=== PATIENT | male | born 1940 | race Caucasian/White ===

== ENCOUNTER 2016-10-30 10:30 | Inpatient (IN) | payer MEDICARE, OTHER ==
[2016-10-30] MEDS ORDERED: Albuterol/Ipratropium 3.0-0.5 MG/3 ML Neb Soln NEB PRN (11:49)
[2016-10-30] MEDS: Insulin Aspart 100 Units/ML 3 ML Pen SUBCUT SCH ×2 (12:50→17:39)
[2016-10-30] MEDS: Acetaminophen/HYDROcodone 325-5 MG Tab PO PRN ×2 (14:34→21:19)
--- NOTE | 2016-10-30 14:41 | PCM.HP ---
H&P History of Present Illness - General Date of Service: 10/30/16 Admit Problem/Dx: Admission Diagnosis/Problem Admission Diagnosis/Problem Respiratory failure without hypercapnia - History of Present Illness Initial Comments - Free Text/Narative: HPI: On 10/11/16 he became very weak at home, fell against a wall with abrasions of his face and was found by his family. He doesnt remember being admitted. He was found to be severely ill with acute respiratory failure and sepsis, T/F [facility] in [place] and was there until 10/13/16, T/F to Swing Bed and was doing fairly well but on 10/26/16 developed increased cough and hemoptysis. Because of Chronic Kidney Disease he is not a candidate for CT so he was transferred back to [facility] for evaluation for possible pulmonary emboli. That was negative, he stabilized fairly quickly, and is now back to continue recovery in Swing Bed. He has been a minimalist when it comes to regular F/U for his diabetes and other conditions at home, but he is Full Code status in the hospital now. During his first hospitalization he was found to have acute cholecystitis and had a cholecystostomy with tube drainage, continues with tube and has appointment scheduled for 11/06 with Surgery to discuss the cholecystectomy. Medical History -Severe ear infection R ear as child, hearing loss -Started Rx for hyperlipidemia -Dx diabetes -Hypertension, Rx started 08/23, poorly compliant w. F/U -Saw Dr. Venegas for severe degenerative arthritis -05/30 low B12 but pt refuses to add any "new pills" -05/30 DX CKD, probably from diabetes; 05/03 Avandia D/C'd -03/01, 05/03 still no colonoscopy for positive Hemoccult, refusing 08/07 K+ up to 6.1, OK after ACEIs D/Cd, avoids excess for juice, down to 3.5 by 09/06 -09/06 Glycated Hb still 11.2, still refused insulin -05/03 GFR temporarily < 30, started Nephrology F/U , then improved again; metformin D/C'd 06/03 Acute care 10/11-10/13/16, T/F [facility] for septicemia and respiratory failure, cholecystostomy with tube drainage for acute cholecystitis; started on insulin Swing Bed 10/24-10/26/16, T/F back to [facility] for hemoptysis Back to swing bed 10/30/16 Surgical History -Hosp in [facility] [place] [place] for soto, then severe infection L leg, bacteremia -Fx L index fingertip -Cellulitis R long finger, saw Dr. Chavarria, 02/20 -Mohs surgery for BCC R cheek 04/23 -05/03 another suspicious lesion helix of L ear, Bx showed BCC, refused Rx and it continues to grow very slowly Family History: -Says almost everyone on both sides had tremor -F d. age 87 in 06/24, had arrhythmia, during complications of pacemaker implantation -M. d. 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 Claims relatives on the [employer]. Retired 09/23. 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 [place] clinic. 2 gypsy's, one Claudia in [facility] has gypsy wPoonam cerebral palsy, her phone number [phone], and she says that she and her brother Christopher are certified durable power of assistant attorney general for health care, so we should let one of them know when something happens. 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 11/08 Claudia is planning to take a leave from work to help care for him for his appointments and at home when he goes back. Code Level is 1 in spite of him refusing so many treatments at home. Systems Review: -Constitutional: VS have been OK, he continues to be Code Level 1 -Eyes: Gets regular eye exams and has not had signs of diabetic retinopathy -ENT: Has only a few teeth remaining; hearing has been poor all his life since lots of childhood ear infections -Cardiac: Hypertension has been well controlled, never any coronary disease or exertional chest pain -Pulmonary: Never a significant smoker, no lung disease; his acute respiratory failure requiring ventilator support 10/08 was because of his sepsis -GI: See HPI regarding cholecystitis and cholecystostomy tube; he has had positive Hemoccults in the past, since 08/23, and always refused colonoscopy; takes Tums for heartburn -: Never any prostate or bladder trouble, is followed by Dr. Parr for his stage 4 CKD -Heme: He and family think he got a 1 unit transfusion in Hosp -Musculoskeletal: Has had rather severe degenerative arthritis, especially in his hands, and they are worse, constantly painful and he requests pain medication now -Endocrine: Very poor insulin control until now because previously refused insulin, on insulin it has been good and his dose has been decreased; never had optimal control of LDL until he agreed to start Zocor 06/04, OK since then; note his K+ went up to 6.1 in 08/07, then came down to 3.5 after stopping Vasotec and limiting his fruit juice -Derm: Lifelong ichthyosis; see Surgical History regarding BCC of L ear which he has refused to have Rxd -Allergies: No seasonal allergies -Neurologic: Many years of familial tremor; family thinks he may have had a stroke in the hospital because he seems weaker on L, but were told that his scan was unremarkable -Psych: Denies any depression or other mood problems, even with this illness, is looking forward to getting home again. - Related Data Allergies/Adverse Reactions: Allergies Allergy/AdvReac Type Severity Reaction Status Date / Time Penicillins AdvReac Stomach Verified 10/30/16 11:42 Ache Home Medications: Home Meds Cyanocobalamin (Vitamin B-12) [B-12] 1,000 mcg PO DAILY 10/14/16 [History] Albuterol/Ipratropium [DuoNeb 3.0-0.5 MG/3 ML] 3 ml NEB Q4HRRT PRN 10/24/16 [ History] Insulin Aspart [NovoLOG] 6 unit SUBCUT TIDMEALS 10/24/16 [History] Insulin Glarg,Human.Rec.Analog [Lantus Solostar] 30 unit SUBCUT QAM 10/24/16 [ History] Magnesium Oxide 400 mg PO BIDMEALS 10/24/16 [History] Aspirin 325 mg PO DAILY 10/30/16 [History] Past Medical History HEENT History: Reports: Hard of hearing, Impaired vision Cardiovascular History: Reports: High cholesterol, Hypertension Respiratory History: Reports: Intubation, previous Gastrointestinal History: Reports: None Genitourinary History: Reports: Chronic renal insuffiency, Urinary incontinence , UTI, recurrent Musculoskeletal History: Reports: None Neurological History: Reports: None Psychiatric History: Reports: None Endocrine/Metabolic History: Reports: Diabetes, type II Hematologic History: Reports: B12 deficiency Immunologic History: Reports: None Oncologic (Cancer) History: Reports: Basal cell carcinoma Dermatologic History: Reports: Other (see below) Other Dermatologic History: has skin disorder for many years - Infectious Disease History Other Infectious Disease History: paient unsure - Past Surgical History Head Surgeries/Procedures: Reports: None HEENT Surgical History: Reports: None Respiratory Surgical History: Reports: None GI Surgical History: Reports: Other (see below) Other GI Surgeries/Procedures: gall bladder drain Male Surgical History: Reports: None Neurological Surgical History: Reports: None Musculoskeletal Surgical History: Reports: None Dermatological Surgical History: Reports: None Social & Family History - Family History Family Medical History: Noncontributory - Tobacco Use Smoking Status *Q: Unknown Ever Smoked - Caffeine Use Caffeine Use: Reports: None - Alcohol Use Days Per Week of Alcohol Use: 0 - Recreational Drug Use Recreational Drug Use: No H&P Review of Systems - Review of Systems: Review Of Systems: See Below Exam - Exam Exam: See Below - Vital Signs Vital Signs: Last Vital Signs Temp 37.1 C 10/30/16 12:28 Pulse 100 10/30/16 12:28 Resp BP 132/82 10/30/16 12:28 Pulse Ox 99 10/30/16 12:28 Weight: 64.41 kg - Exam Physical Exam Comments:: Physical Exam: -General: Alert and answers questions appropriately, afebrile and BP OK -Eyes: Pupils equal, EOMs normal- -ENT: Some cerumen, hearing decreased; teeth in very poor condition -Neck: No thyroid enlargement, masses, or bruit -Cardiac: Heart sounds distant but normal and regular, mild tachycardia; no ankle edema, good posterior tibial pulse R, dorsalis pedis L -Pulmonary: Lungs clear, no cough or dyspnea -Abdomen: Has a cholecystostomy tube sutured into the RUQ; no tenderness or organomegaly -: BRENDA not done -Musculoskeletal: L knee does not extend fully; marked thickening and limited extension of all of the IP joints of his hands -Neurologic: Mild tremor: On statistical assistant strength testing I cannot appreciate any decreased strength on the L, his facial muscles seem symmetric -Skin: Generalized ichthyosis with profuse scaling; untreated BCC L ear helix -Psych: Cheerful, oriented, and alert - Patient Data Lab Results last 24 hrs: Laboratory Results - last 24 hr 10/30/16 Range/Units 10:55 POC Glucose 119 H (74-106) mg/dL *Q Meaningful Use (ADM) - VTE *Q VTE Criteria *Q: - Stroke *Q Stroke Criteria *Q: - AMI *Q AMI Criteria *Q: Problem List Initiated/Reviewed/Updated: Yes Orders Last 24hrs: Active Orders 24 hr Category Date Time Status Admission Status [Patient Status] [ADT] Routine ADT 10/30/16 09:04 Active Patient Status [ADT] Routine ADT 10/30/16 12:28 Active Patient Status [ADT] Routine ADT 10/30/16 13:35 Active Accu Check [Blood Glucose Check, Bedside] [RC] 07,11,17 Care 10/30/16 12:48 Active ,20 Antiembolic Devices [RC] PER UNIT ROUTINE Care 10/30/16 13:38 Active Oxygen Therapy [RC] .PRN Care 10/30/16 12:28 Active VTE/DVT Education [RC] .PRN Care 10/30/16 12:28 Active Vital Signs [RC] 06,18 Care 10/30/16 12:28 Active Consult to Occupational Therapy [OT Evaluation and Cons 10/30/16 12:39 Active Treatment] [CONS] Routine Consult to Physical Therapy [PT Evaluation and Cons 10/30/16 12:39 Active Treatment] [CONS] Routine Consult to Speech Language Pathology [MEDICAL CODING TECHNICIAN Evaluation Cons 10/30/16 12:40 Active and Treatment] [CONS] Routine ADA Diabetic [[place] Diabetic Association Diet] [DIET Diet 10/30/16 Dinner Active ] Mechanical Soft Diet [DIET] Diet 10/30/16 Dinner Active Mechanical Soft Diet [DIET] Diet 10/30/16 Dinner Active Acetaminophen/HYDROcodone [[place] 325-5 MG] Med 10/30/16 14:16 Active 1 tab PO Q4H PRN Albuterol/Ipratropium [DuoNeb 3.0-0.5 MG/3 ML] Med 10/30/16 11:49 Active 3 ml NEB Q4HRRT PRN Aspirin [Ecotrin] Med 10/31/16 08:00 Active 325 mg PO DAILY Cyanocobalamin (Vitamin B12) [Vitamin B12] Med 10/31/16 08:00 Active 1,000 mcg PO DAILY Insulin Aspart [NovoLOG] Med 10/30/16 12:00 Active 6 unit SUBCUT TIDMEALS Insulin Glarg,Human.Rec.Analog [LantUS Solostar] Med 10/31/16 08:00 Active 30 units SUBCUT DAILY Magnesium Oxide Med 10/30/16 18:00 Active 400 mg PO BIDMEALS GIOVANNA Hose [Antiembolic Hose] [OM.PC] Routine Oth 10/30/16 13:37 Ordered Resuscitation Status Routine Resus Stat 10/30/16 12:28 Ordered Medication Orders Acetaminophen/Hydrocodone Bitart ([place] 325-5 Mg) 1 tab PO Q4H PRN PRN Reason: Pain Last Admin: 10/30/16 14:34 Dose: 1 tab Albuterol/Ipratropium (Duoneb 3.0-0.5 Mg/3 Ml) 3 ml NEB Q4HRRT PRN PRN Reason: Shortness of Breath Aspirin (Ecotrin) 325 mg PO DAILY JIGAR Cyanocobalamin (Vitamin B12) 1,000 mcg PO DAILY [facility] Insulin Aspart (Novolog) 6 unit SUBCUT TIDMEALS JIGAR Last Admin: 10/30/16 12:50 Dose: Not Given Insulin Glargine (Lantus Solostar) 30 units SUBCUT DAILY [facility] Magnesium Oxide (Magnesium Oxide) 400 mg PO BIDMEALS [facility] Assessment/Plan Comment:: Impression: -Recent hospitalization for septicemia, acute cholecystitis, acute respiratory failure with assisted ventilation, then repeat hospitalization for hemoptysis, now stable again and testing was negative for pulmonary embolus -Needs Swing Bed for recuperation -Chronic Kidney Disease stage 4 -Diabetes type 2, 17 years duration, poorly controlled until starting insulin recently -Hyperlipidemia, controlled on Zocor -Hypertension, controlled -Chronic ichthyosis congenita -Familial essential tremor -Untreated BCC of L ear helix, refuses Rx -Hx positive Hemoccult, refuses colonoscopy Plan: -General recovery in Swing Bed -Now on Lantus and Humalog -Per his request start [place] 5/325 q.4 hours p.r.n. arthritis pain in hands, I will plan to continue this at home also -Per his request, Full Code status
[2016-10-30] MEDS: Magnesium Oxide 400 MG Tab PO SCH (17:38)
[2016-10-31] MEDS: Magnesium Oxide 400 MG Tab PO SCH ×2 (08:08→18:28)
[2016-10-31] MEDS: Aspirin 325 MG Tab.EC PO SCH (08:08)
[2016-10-31] MEDS: Insulin Aspart 100 Units/ML 3 ML Pen SUBCUT SCH ×3 (08:08→18:27)
[2016-10-31] MEDS: Cyanocobalamin (Vitamin B12) 1,000 MCG Tab PO SCH (08:08)
[2016-10-31] MEDS: Insulin Glargine,Human Rec. Analog 100 Units/ML 3 ML Pen SUBCUT SCH (08:09)
[2016-10-31] MEDS: Acetaminophen/HYDROcodone 325-5 MG Tab PO PRN (12:59)
[2016-11-01] MEDS: Acetaminophen/HYDROcodone 325-5 MG Tab PO PRN ×2 (06:57→15:31)
[2016-11-01] MEDS: Cyanocobalamin (Vitamin B12) 1,000 MCG Tab PO SCH (09:02)
[2016-11-01] MEDS: Magnesium Oxide 400 MG Tab PO SCH ×2 (09:02→17:57)
[2016-11-01] MEDS: Aspirin 325 MG Tab.EC PO SCH (09:02)
[2016-11-01] MEDS: Insulin Glargine,Human Rec. Analog 100 Units/ML 3 ML Pen SUBCUT SCH (09:03)
[2016-11-01] MEDS: Insulin Aspart 100 Units/ML 3 ML Pen SUBCUT SCH ×3 (09:03→17:58)
[2016-11-01] MEDS ORDERED: Barium Sulfate 98% Powder for Susp 340 GM Bottle PO ONE (11:02)
[2016-11-01] MEDS ORDERED: Barium Sulfate 60% w/w Esophageal Crm 454 GM Tube PO ONE (11:02)
[2016-11-02] MEDS: Aspirin 325 MG Tab.EC PO SCH (07:49)
[2016-11-02] MEDS: Cyanocobalamin (Vitamin B12) 1,000 MCG Tab PO SCH (07:49)
[2016-11-02] MEDS: Magnesium Oxide 400 MG Tab PO SCH ×2 (07:49→17:36)
--- NOTE | 2016-11-02 09:08 | PCM.SN ---
- Free Text/Narrative Note: Approached by nursing to look at patient's glucoses. He has had issues with hypoglycemia in the am with hyperglycemia before bed. Will decrease lantus to 20 units, discontinue scheduled Novolog, and start Novolog low intensity correction scale.
[2016-11-02] MEDS: Insulin Glargine,Human Rec. Analog 100 Units/ML 3 ML Pen SUBCUT SCH ×2 (09:10→09:23)
[2016-11-02] MEDS: Insulin Aspart 100 Units/ML 3 ML Pen SUBCUT SCH ×3 (09:11→17:36)
[2016-11-02] MEDS: Acetaminophen/HYDROcodone 325-5 MG Tab PO PRN (13:08)
[2016-11-03] MEDS: Insulin Aspart 100 Units/ML 3 ML Pen SUBCUT SCH ×3 (07:33→17:32)
[2016-11-03] MEDS: Magnesium Oxide 400 MG Tab PO SCH ×2 (07:43→17:31)
[2016-11-03] MEDS: Aspirin 325 MG Tab.EC PO SCH (07:44)
[2016-11-03] MEDS: Cyanocobalamin (Vitamin B12) 1,000 MCG Tab PO SCH (07:44)
[2016-11-03] MEDS: Insulin Glargine,Human Rec. Analog 100 Units/ML 3 ML Pen SUBCUT SCH (07:45)
[2016-11-03] MEDS: Acetaminophen/HYDROcodone 325-5 MG Tab PO PRN (17:31)
[2016-11-04] MEDS: Cyanocobalamin (Vitamin B12) 1,000 MCG Tab PO SCH (07:38)
[2016-11-04] MEDS: Aspirin 325 MG Tab.EC PO SCH (07:39)
[2016-11-04] MEDS: Magnesium Oxide 400 MG Tab PO SCH ×2 (07:39→17:45)
[2016-11-04] MEDS: Insulin Glargine,Human Rec. Analog 100 Units/ML 3 ML Pen SUBCUT SCH (07:39)
[2016-11-04] MEDS: Insulin Aspart 100 Units/ML 3 ML Pen SUBCUT SCH ×3 (08:34→17:42)
[2016-11-05] MEDS: Aspirin 325 MG Tab.EC PO SCH (08:07)
[2016-11-05] MEDS: Insulin Glargine,Human Rec. Analog 100 Units/ML 3 ML Pen SUBCUT SCH (08:08)
[2016-11-05] MEDS: Cyanocobalamin (Vitamin B12) 1,000 MCG Tab PO SCH (08:08)
[2016-11-05] MEDS: Magnesium Oxide 400 MG Tab PO SCH ×2 (08:08→17:35)
[2016-11-05] MEDS: Insulin Aspart 100 Units/ML 3 ML Pen SUBCUT SCH ×3 (08:11→17:36)
[2016-11-05] MEDS: Acetaminophen/HYDROcodone 325-5 MG Tab PO PRN (22:54)
[2016-11-06] MEDS: Cyanocobalamin (Vitamin B12) 1,000 MCG Tab PO SCH (08:08)
[2016-11-06] MEDS: Magnesium Oxide 400 MG Tab PO SCH ×2 (08:08→17:50)
[2016-11-06] MEDS: Aspirin 325 MG Tab.EC PO SCH (08:08)
[2016-11-06] MEDS: Insulin Aspart 100 Units/ML 3 ML Pen SUBCUT SCH ×3 (08:08→17:50)
[2016-11-06] MEDS: Insulin Glargine,Human Rec. Analog 100 Units/ML 3 ML Pen SUBCUT SCH (08:08)
[2016-11-06] MEDS: Acetaminophen/HYDROcodone 325-5 MG Tab PO PRN (23:23)
[2016-11-07] MEDS: Aspirin 325 MG Tab.EC PO SCH (07:47)
[2016-11-07] MEDS: Magnesium Oxide 400 MG Tab PO SCH ×2 (07:47→18:31)
[2016-11-07] MEDS: Insulin Glargine,Human Rec. Analog 100 Units/ML 3 ML Pen SUBCUT SCH (07:47)
[2016-11-07] MEDS: Cyanocobalamin (Vitamin B12) 1,000 MCG Tab PO SCH (07:47)
[2016-11-07] MEDS: Insulin Aspart 100 Units/ML 3 ML Pen SUBCUT SCH ×3 (07:51→18:32)
[2016-11-07] MEDS: Acetaminophen/HYDROcodone 325-5 MG Tab PO PRN (20:59)
[2016-11-08] MEDS: Cyanocobalamin (Vitamin B12) 1,000 MCG Tab PO SCH (07:32)
[2016-11-08] MEDS: Aspirin 325 MG Tab.EC PO SCH (07:32)
[2016-11-08] MEDS: Magnesium Oxide 400 MG Tab PO SCH ×2 (07:32→16:59)
[2016-11-08] MEDS: Insulin Glargine,Human Rec. Analog 100 Units/ML 3 ML Pen SUBCUT SCH (07:33)
[2016-11-08] MEDS: Insulin Aspart 100 Units/ML 3 ML Pen SUBCUT SCH (07:35)
--- NOTE | 2016-11-08 09:57 | PCM.PN ---
- General Info Date of Service: 11/08/16 Admission Dx/Problem (Free Text): He has made significant progress towards ambulating on his own, Physical Therapy reports. They anticipate possibility of D/C to his home late next week. He will have his daughter Daria to help him and will plan on Home Care. He is still on insulin, has been on that since he was in ICU. Before that he was on Tanzeum on weekly injections and did OK with it then. On Lantus 20 units, his present dose, he has had some low a.m. readings, 76 and 81, so that needs to be decreased anyway. He has had a correction dose of NovoLog, has required a few small doses on that, clearly not essential for his control. There has been questions about his mood, but now that he is anticipating D/C to home it has improved. He has told me previously that he does not feel he has depression, although loneliness since his 's 3 years ago is always a problem. He has ongoing Surgery consultation regarding the cystostomy tube drainage for his gallbladder, and they are anticipating surgery in mid November if all goes well. He will need help from Home Care and his family to do the regular drainage of that when he goes home. - Patient Data Vitals - most recent: Last Vital Signs Temp 37.0 C 11/08/16 05:43 Pulse 80 11/08/16 05:43 Resp 18 11/08/16 05:43 BP 151/85 H 11/08/16 05:43 Pulse Ox 93 L 11/08/16 07:20 Weight - most recent: 61.689 kg I&O - last 24 hours: Intake & Output 11/07/16 11/08/16 11/08/16 22:59 06:59 14:59 Intake Total 100 360 Output Total 25 50 Balance -25 50 360 Lab Results last 24 hrs: Laboratory Results - last 24 hr 11/07/16 11/07/16 11/07/16 Range/Units 10:59 17:27 19:59 POC Glucose 280 H 76 180 H (74-106) mg/dL 11/08/16 Range/Units 06:15 POC Glucose 81 (74-106) mg/dL Med Orders - Current: Current Medications Acetaminophen/Hydrocodone Bitart ([place] 325-5 Mg) 1 tab PO Q4H PRN PRN Reason: Pain Last Admin: 11/07/16 20:59 Dose: 1 tab Albuterol/Ipratropium (Duoneb 3.0-0.5 Mg/3 Ml) 3 ml NEB Q4HRRT PRN PRN Reason: Shortness of Breath Aspirin (Ecotrin) 325 mg PO DAILY [facility] Last Admin: 11/08/16 07:32 Dose: 325 mg Cyanocobalamin (Vitamin B12) 1,000 mcg PO DAILY [facility] Last Admin: 11/08/16 07:32 Dose: 1,000 mcg Insulin Glargine (Lantus Solostar) 10 units SUBCUT DAILY [facility] Magnesium Oxide (Magnesium Oxide) 400 mg PO BIDMEALS [facility] Last Admin: 11/08/16 07:32 Dose: 400 mg Discontinued Medications Barium Sulfate (E-Z-Hd) 340 gm PO ONETIME ONE Stop: 11/01/16 11:03 Last Admin: 11/01/16 11:06 Dose: 340 gm Barium Sulfate (E-Z-Paste) 454 gm PO ONETIME ONE Stop: 11/01/16 11:03 Last Admin: 11/01/16 11:06 Dose: 454 gm Insulin Aspart (Novolog) 6 unit SUBCUT TIDMEALS [facility] Last Admin: 11/02/16 09:11 Dose: Not Given Insulin Aspart (Novolog) 0 unit SUBCUT TIDMEALS [facility] PRN Reason: Protocol Last Admin: 11/08/16 07:35 Dose: Not Given Insulin Glargine (Lantus Solostar) 30 units SUBCUT DAILY [facility] Last Admin: 11/02/16 09:10 Dose: Not Given Insulin Glargine (Lantus Solostar) 20 units SUBCUT DAILY [facility] Last Admin: 11/08/16 07:33 Dose: 20 units - Exam Physical Findings Comments:: -Alert and answers questions appropriately -RUQ cystostomy tube sewed in place -VS OK mild elevation of BP readings - Problem List Review Problem List Initiated/Reviewed/Updated: Yes - My Orders Last 24 Hours: My Active Orders 11/08/16 09:40 Insulin Glarg,Human.Rec.Analog [LantUS Solostar] 10 units SUBCUT DAILY 11/11/16 07:30 BASIC METABOLIC PANEL,BMP [CHEM] Routine - Assessment Assessment:: -Good recovery from life-threatening cholecystitis and pneumonia -Now has functioning cystostomy tube drainage, off antibiotics a few weeks -Good progress in Swing Bed -Hx hyperkalemia, that went to normal again on stopping Vasotec -Marked hyperglycemia when he was severely ill, now having some low readings on very low doses of insulin -He had strongly resisted being on insulin at home previously, it appears he can go back to weekly Tanzeum injections again - Plan Plan:: -Decrease Lantus from 20 down to 10 units -Plan to D/C it on Friday11/11/16 -Plan a Tanzeum injection again on 11/11/16 -Then observe Accu-Cheks only until he goes home -Plan Home Care when he goes home, daughter Daria will be there to help also
[2016-11-09] MEDS: Insulin Glargine,Human Rec. Analog 100 Units/ML 3 ML Pen SUBCUT SCH (07:30)
[2016-11-09] MEDS: Magnesium Oxide 400 MG Tab PO SCH ×2 (07:31→17:23)
[2016-11-09] MEDS: Cyanocobalamin (Vitamin B12) 1,000 MCG Tab PO SCH (07:31)
[2016-11-09] MEDS: Aspirin 325 MG Tab.EC PO SCH (07:31)
[2016-11-10] MEDS: Cyanocobalamin (Vitamin B12) 1,000 MCG Tab PO SCH (07:18)
[2016-11-10] MEDS: Aspirin 325 MG Tab.EC PO SCH (07:18)
[2016-11-10] MEDS: Magnesium Oxide 400 MG Tab PO SCH ×2 (07:18→17:06)
[2016-11-10] MEDS: Insulin Glargine,Human Rec. Analog 100 Units/ML 3 ML Pen SUBCUT SCH (07:18)
[2016-11-11] MEDS: Aspirin 325 MG Tab.EC PO SCH (07:41)
[2016-11-11] MEDS: Magnesium Oxide 400 MG Tab PO SCH ×2 (07:41→18:08)
[2016-11-11] MEDS: Cyanocobalamin (Vitamin B12) 1,000 MCG Tab PO SCH (07:41)
[2016-11-11] MEDS: Insulin Glargine,Human Rec. Analog 100 Units/ML 3 ML Pen SUBCUT SCH (07:42)
--- NOTE | 2016-11-11 09:03 | PCM.PN ---
- General Info Date of Service: 11/11/16 Admission Dx/Problem (Free Text): His family has brought in the [facility] and he is ready to get a dose today, had been getting 50 mg SC weekly at home before his hospitalization. Unfortunately, since decreasing his Lantus from 20 down to 10 units daily last week, his Accu- Chek readings have been quite high, one this morning was over 300. Staff have noticed that he acts depressed, he rather denied last week but appears depressed today, cannot really describe how he is feeling but appears dysphoric. - Patient Data Vitals - most recent: Last Vital Signs Temp 36.9 C 11/11/16 06:00 Pulse 76 11/11/16 06:00 Resp 20 11/11/16 06:00 BP 150/72 H 11/11/16 06:00 Pulse Ox 100 11/11/16 06:00 Weight - most recent: 61.689 kg I&O - last 24 hours: Intake & Output 11/10/16 11/11/16 11/11/16 22:59 06:59 14:59 Intake Total 640 300 Output Total 10 Balance 630 300 Lab Results last 24 hrs: Laboratory Results - last 24 hr 11/09/16 11/10/16 11/10/16 Range/Units 19:41 06:41 10:15 Sodium (136-145) mmol/L Potassium (3.5-5.1) mmol/L Chloride (98-107) mmol/L Carbon Dioxide (21-32) mmol/L BUN (7-18) mg/dL Creatinine (0.70-1.30) mg/dL Est Cr Clr Drug Dosing mL/min Estimated GFR (MDRD) Glucose (74-106) mg/dL POC Glucose 266 H 189 H 301 H (74-106) mg/dL Calcium (8.5-10.1) mg/dL 11/10/16 11/10/16 11/11/16 Range/Units 16:19 19:56 06:04 Sodium (136-145) mmol/L Potassium (3.5-5.1) mmol/L Chloride (98-107) mmol/L Carbon Dioxide (21-32) mmol/L BUN (7-18) mg/dL Creatinine (0.70-1.30) mg/dL Est Cr Clr Drug Dosing mL/min Estimated GFR (MDRD) Glucose (74-106) mg/dL POC Glucose 296 H 387 H 264 H (74-106) mg/dL Calcium (8.5-10.1) mg/dL 11/11/16 Range/Units 06:38 Sodium 137 (136-145) mmol/L Potassium 4.6 (3.5-5.1) mmol/L Chloride 103 (98-107) mmol/L Carbon Dioxide 26 (21-32) mmol/L BUN 41 H (7-18) mg/dL Creatinine 2.1 H (0.70-1.30) mg/dL Est Cr Clr Drug Dosing 26.11 mL/min Estimated GFR (MDRD) 31 Glucose 203 H (74-106) mg/dL POC Glucose (74-106) mg/dL Calcium 8.3 L (8.5-10.1) mg/dL Med Orders - Current: Current Medications Acetaminophen/Hydrocodone Bitart ([place] 325-5 Mg) 1 tab PO Q4H PRN PRN Reason: Pain Last Admin: 11/07/16 20:59 Dose: 1 tab Albuterol/Ipratropium (Duoneb 3.0-0.5 Mg/3 Ml) 3 ml NEB Q4HRRT PRN PRN Reason: Shortness of Breath Aspirin (Ecotrin) 325 mg PO DAILY [facility] Last Admin: 11/11/16 07:41 Dose: 325 mg Cyanocobalamin (Vitamin B12) 1,000 mcg PO DAILY [facility] Last Admin: 11/11/16 07:41 Dose: 1,000 mcg Magnesium Oxide (Magnesium Oxide) 400 mg PO BIDMEALS [facility] Last Admin: 11/11/16 07:41 Dose: 400 mg Discontinued Medications Barium Sulfate (E-Z-Hd) 340 gm PO ONETIME ONE Stop: 11/01/16 11:03 Last Admin: 11/01/16 11:06 Dose: 340 gm Barium Sulfate (E-Z-Paste) 454 gm PO ONETIME ONE Stop: 11/01/16 11:03 Last Admin: 11/01/16 11:06 Dose: 454 gm Insulin Aspart (Novolog) 6 unit SUBCUT TIDMEALS [facility] Last Admin: 11/02/16 09:11 Dose: Not Given Insulin Aspart (Novolog) 0 unit SUBCUT TIDMEALS [facility] PRN Reason: Protocol Last Admin: 11/08/16 07:35 Dose: Not Given Insulin Glargine (Lantus Solostar) 30 units SUBCUT DAILY [facility] Last Admin: 11/02/16 09:10 Dose: Not Given Insulin Glargine (Lantus Solostar) 20 units SUBCUT DAILY [facility] Last Admin: 11/08/16 07:33 Dose: 20 units Insulin Glargine (Lantus Solostar) 10 units SUBCUT DAILY [facility] Last Admin: 11/11/16 07:42 Dose: 10 units - Exam Physical Findings Comments:: -He is dressed and sitting on the edge of the table -Answers questions appropriately but he is reticent and dysphoric appearing -Clear yellow drainage from his cholecystostomy tube -Tremor is severe, has trouble even getting a tissue from the box to wipe his nose - Problem List Review Problem List Initiated/Reviewed/Updated: Yes - My Orders Last 24 Hours: My Active Orders 11/11/16 08:55 Communication Order [RC] ROUTINE - Assessment Assessment:: -He will get a trial of transitioning back from Lantus to the Tanzeum 50 mg SC weekly that he took previously -Accu-Chek readings have unfortunately been high decreasing his Lantus -His essential tremor is worsening and somewhat disabling -He does need to be watched carefully for major depression - Plan Plan:: -D/C Lantus -Using the Tanzeum that he brought in from his supply at home he will start 50 mg SC weekly today -By late this week when he is anticipating D/C to home we will be able to tell if he needs to go back on Lantus
[2016-11-11] MEDS ORDERED: TANZEUM SUBCUT SCH (12:00)
[2016-11-12] MEDS: Cyanocobalamin (Vitamin B12) 1,000 MCG Tab PO SCH (08:42)
[2016-11-12] MEDS: Magnesium Oxide 400 MG Tab PO SCH ×2 (08:43→17:48)
[2016-11-12] MEDS: Aspirin 325 MG Tab.EC PO SCH (08:43)
[2016-11-13] MEDS: Cyanocobalamin (Vitamin B12) 1,000 MCG Tab PO SCH (07:50)
[2016-11-13] MEDS: Aspirin 325 MG Tab.EC PO SCH (07:50)
[2016-11-13] MEDS: Magnesium Oxide 400 MG Tab PO SCH ×2 (07:51→17:18)
[2016-11-13] MEDS: Acetaminophen/HYDROcodone 325-5 MG Tab PO PRN (19:42)
[2016-11-14] MEDS: Magnesium Oxide 400 MG Tab PO SCH ×2 (08:01→17:07)
[2016-11-14] MEDS: Aspirin 325 MG Tab.EC PO SCH (08:02)
[2016-11-14] MEDS: Cyanocobalamin (Vitamin B12) 1,000 MCG Tab PO SCH (08:02)
[2016-11-15 06:04] VITALS: BP 168/80
[2016-11-15] MEDS: Magnesium Oxide 400 MG Tab PO SCH (07:39)
[2016-11-15] MEDS: Cyanocobalamin (Vitamin B12) 1,000 MCG Tab PO SCH (07:39)
[2016-11-15] MEDS: Aspirin 325 MG Tab.EC PO SCH (07:39)
[2016-11-15] MEDS ORDERED: Insulin Detemir 100 Units/ML 3 ML Pen SUBCUT SCH (08:00)
--- NOTE | 2016-11-15 10:06 | PCM.DCSUM1 ---
Discharge Summary - Discharge Data Discharge Date: 11/15/16 Discharge Disposition: Home, W Home Health Agency 06 Condition: Fair - Patient Summary/Data Consults: Consultations 10/30/16 12:39 Consult to Occupational Therapy [OT Evaluation and Treatment] [CONS] Routine Consult to Physical Therapy [PT Evaluation and Treatment] [CONS] Routine 10/30/16 12:40 Consult to Speech Language Pathology [WAREHOUSE ADMINISTRATIVE ASSISTANT Evaluation and Treatment] [CONS] Routine - Discharge Plan Prescriptions/Med Rec: Insulin Glargine,Hum.Rec.Anlog [Lantus Solostar] 10 unit SQ DAILY #3 ml Home Medications: Home Meds Cyanocobalamin (Vitamin B-12) [B-12] 1,000 mcg PO DAILY 10/14/16 [History] Albuterol/Ipratropium [DuoNeb 3.0-0.5 MG/3 ML] 3 ml NEB Q4HRRT PRN 10/24/16 [ History] Magnesium Oxide 400 mg PO BIDMEALS 10/24/16 [History] Aspirin 325 mg PO DAILY 10/30/16 [History] Albiglutide [Tanzeum] 50 mg SQ Q7D 11/08/16 [History] Insulin Glargine,Hum.Rec.Anlog [Lantus Solostar] 10 unit SQ DAILY #3 ml [Rx] - Discharge Summary/Plan Comment Discharge Summary/Plan Comment: Final Diagnosis: -Recent hospitalization for septicemia, acute cholecystitis, acute respiratory failure with assisted ventilation, then repeat hospitalization for hemoptysis, now stable again and testing was negative for pulmonary embolus -Cystostomy tube drainage, cholecystectomy planned soon -Chronic Kidney Disease stage 4 -Diabetes type 2, 17 years duration, poorly controlled until starting insulin recently Secondary Diagnoses: -Hyperlipidemia, controlled on Zocor -Hypertension, controlled -Chronic ichthyosis congenita -Familial essential tremor -Untreated BCC of L ear helix, refuses Rx -Hx positive Hemoccult, refuses colonoscopy Reason for Admission: Recent hospitalization for septicemia, acute cholecystitis, acute respiratory failure, then a repeat hospitalization for hemoptysis, not strong enough to go home yet and required swing bed. Previously at home had been on Tanzeum but now in hospital blood sugars were high, required Lantus and NovoLog insulin, Lantus was at 30 units on transfer back to Swing Bed Initial Findings: -Heart normal and regular -Lungs clear -Cholecystostomy tube sutured into RUQ abdomen, draining clear dark yellow fluid -Still quite weak, but alert and oriented -GFR about 30, creatinine 2.1, similar to previous Treatment and Course in Hospital: At first it appeared that he would need to go to long-term but with Physical Therapy he steadily regained strength and he and his family became confident that he could go back home again. In anticipation of that he was put back on his Tanzeum and insulin was stopped. However his blood sugars went into the 300s so he required reinstatement of Lantus, at 10 units because he had previously been decreased to that amount. He had no other problems with this stay in Swing Bed Condition on Discharge: -Heart sounds normal and regular -BP okay -Lungs clear -Alert and answering questions appropriately, able to walk with a walker Discharge Plan: -Continue Tanzeum 50 mg daily subcutaneous -Continue Lantus 10 units every morning, daughter will visit every morning and helping with that and check his blood sugar -He will have Home Care -See MICHELA be in 2 weeks - Patient Data Vitals - Most Recent: Last Vital Signs Temp 36.9 C 11/15/16 06:00 Pulse 76 11/15/16 06:00 Resp 20 11/15/16 06:00 BP 168/80 H 11/15/16 06:00 Pulse Ox 96 11/15/16 06:00 Weight - Most Recent: 61.689 kg I&O - Last 24 hours: Intake & Output 11/14/16 11/15/16 11/15/16 22:59 06:59 14:59 Intake Total 360 360 Output Total 31 3 Balance 329 -3 360 Lab Results - Last 24 hrs: Laboratory Results - last 24 hr 11/14/16 11/14/16 11/14/16 Range/Units 10:51 17:04 19:33 POC Glucose 319 H 313 H 357 H (74-106) mg/dL 11/15/16 Range/Units 06:08 POC Glucose 206 H (74-106) mg/dL Med Orders - Current: Current Medications Acetaminophen/Hydrocodone Bitart ([place] 325-5 Mg) 1 tab PO Q4H PRN PRN Reason: Pain Last Admin: 11/13/16 19:42 Dose: 1 tab Albuterol/Ipratropium (Duoneb 3.0-0.5 Mg/3 Ml) 3 ml NEB Q4HRRT PRN PRN Reason: Shortness of Breath Aspirin (Ecotrin) 325 mg PO DAILY [facility] Last Admin: 11/15/16 07:39 Dose: 325 mg Cyanocobalamin (Vitamin B12) 1,000 mcg PO DAILY [facility] Last Admin: 11/15/16 07:39 Dose: 1,000 mcg Magnesium Oxide (Magnesium Oxide) 400 mg PO BIDMEALS [facility] Last Admin: 11/15/16 07:39 Dose: 400 mg Tanzeum 50 (Own (Supply)) 1 each SUBCUT Q7D [facility] Last Admin: 11/13/16 07:51 Dose: 1 each Discontinued Medications Barium Sulfate (E-Z-Hd) 340 gm PO ONETIME ONE Stop: 11/01/16 11:03 Last Admin: 11/01/16 11:06 Dose: 340 gm Barium Sulfate (E-Z-Paste) 454 gm PO ONETIME ONE Stop: 11/01/16 11:03 Last Admin: 11/01/16 11:06 Dose: 454 gm Insulin Aspart (Novolog) 6 unit SUBCUT TIDMEALS [facility] Last Admin: 11/02/16 09:11 Dose: Not Given Insulin Aspart (Novolog) 0 unit SUBCUT TIDMEALS [facility] PRN Reason: Protocol Last Admin: 11/08/16 07:35 Dose: Not Given Insulin Detemir (Levemir) 10 unit SUBCUT DAILY [facility] Last Admin: 11/15/16 07:43 Dose: 10 units Insulin Glargine (Lantus Solostar) 30 units SUBCUT DAILY [facility] Last Admin: 11/02/16 09:10 Dose: Not Given Insulin Glargine (Lantus Solostar) 20 units SUBCUT DAILY [facility] Last Admin: 11/08/16 07:33 Dose: 20 units Insulin Glargine (Lantus Solostar) 10 units SUBCUT DAILY [facility] Last Admin: 11/11/16 07:42 Dose: 10 units *Q Meaningful Use (DIS) - VTE *Q VTE Criteria *Q: - Stroke *Q Stroke Criteria *Q: - AMI *Q AMI Criteria *Q:
[2016-11-16] MEDS ORDERED: Insulin Glargine,Human Rec. Analog 100 Units/ML 3 ML Pen SUBCUT SCH (08:00)
== END 2016-11-15 12:20 | disposition home health service (06) | DRG 871 ==
LOC: VM.MS 10:30
PROVIDERS: ADMIT Family Medicine; ATTEND Family Medicine
DX: A41.9 Sepsis, unspecified organism (principal); J96.00 Acute respiratory failure, unspecified whether with hypoxia or hypercapnia; K81.0 Acute cholecystitis; N18.4 Chronic kidney disease, stage 4 (severe); I12.9 Hypertensive chronic kidney disease with stage 1 through stage 4 chronic kidney disease, or unspecified chronic kidney disease; E11.22 Type 2 diabetes mellitus with diabetic chronic kidney disease; E11.65 Type 2 diabetes mellitus with hyperglycemia; E78.5 Hyperlipidemia, unspecified; Z79.4 Long term (current) use of insulin
CPT/HCPCS: 36415; 74230; 80048; 82962; 92507-GN; 92526-GN; 92610-GN; 92611-GN; 94760; 97110-GP; 97116-GP; 97140-GP; 97162-GP; 97165-GO; 97535-GO; A9270-GY; J1815-GY

== ENCOUNTER 2016-11-25 08:54 | Emergency (ER) | payer MEDICARE, OTHER ==
[2016-11-25] MEDS ORDERED: Pantoprazole 40 MG Vial IVPUSH ONE (09:13)
[2016-11-25] MEDS ORDERED: Insulin Aspart 100 Units/ML 3 ML Pen SUBCUT ONE (09:14)
[2016-11-25] MEDS ORDERED: Sodium Chloride 0.9% 1,000 ML IV ONE (09:33)
--- NOTE | 2016-11-25 09:43 | EDM.PDOC ---
ED HPI GENERAL MEDICAL PROBLEM - General Chief Complaint: General Stated Complaint: hematemisis, change in level of consciousness Time Seen by Provider: 11/25/16 09:06 Source of Information: Reports: EMS, EMS notes reviewed, Family History Limitations: Reports: Altered mental status - History of Present Illness INITIAL COMMENTS - FREE TEXT/NARRATIVE: Patient brought in via ems for bloody emesis. Family reports blood is all over his bathroom. Last seen last evening between 8-9 pm with no problems so this did develop overnight or early this morning. He does not respond to commands. Opens his eyes. No history of MT or Stroke per family. Does have diabetes, blood sugar check showed it to be 363 here in the ER. Family states this is per usual for him. Recently hospitalized for pneumonia at [facility]. While there he did have a biliary drain inserted with plans to remove his gall bladder when he has recovered from the pneumonia. No smoking, remote history of alcohol use. Onset: today Onset Date: 11/25/16 (unknown time of onset) Severity: severe - Related Data Allergies Allergy/AdvReac Type Severity Reaction Status Date / Time Penicillins AdvReac Stomach Verified 11/25/16 09:24 Ache Home Meds: Home Meds Cyanocobalamin (Vitamin B-12) [B-12] 1,000 mcg PO DAILY 10/14/16 [History] Albuterol/Ipratropium [DuoNeb 3.0-0.5 MG/3 ML] 3 ml NEB Q4HRRT PRN 10/24/16 [ History] Magnesium Oxide 400 mg PO BIDMEALS 10/24/16 [History] Aspirin 325 mg PO DAILY 10/30/16 [History] Albiglutide [Tanzeum] 50 mg SQ Q7D 11/08/16 [History] Insulin Glargine,Hum.Rec.Anlog [Lantus Solostar] 10 unit SQ DAILY #3 ml [Rx] Past Medical History HEENT History: Reports: Hard of hearing, Impaired vision Cardiovascular History: Reports: High cholesterol, Hypertension Respiratory History: Reports: Intubation, previous Gastrointestinal History: Reports: None Genitourinary History: Reports: Chronic renal insuffiency, Urinary incontinence , UTI, recurrent Musculoskeletal History: Reports: None Neurological History: Reports: None Psychiatric History: Reports: None Endocrine/Metabolic History: Reports: Diabetes, type II Hematologic History: Reports: B12 deficiency Immunologic History: Reports: None Oncologic (Cancer) History: Reports: Basal cell carcinoma Dermatologic History: Reports: Other (see below) Other Dermatologic History: has skin disorder for many years - Infectious Disease History Other Infectious Disease History: paient unsure - Past Surgical History Head Surgeries/Procedures: Reports: None HEENT Surgical History: Reports: None Respiratory Surgical History: Reports: None GI Surgical History: Reports: Other (see below) Other GI Surgeries/Procedures: gall bladder drain Male Surgical History: Reports: None Neurological Surgical History: Reports: None Musculoskeletal Surgical History: Reports: None Dermatological Surgical History: Reports: None Social & Family History - Family History Family Medical History: Noncontributory - Tobacco Use Smoking Status *Q: Unknown Ever Smoked - Caffeine Use Caffeine Use: Reports: None - Alcohol Use Days Per Week of Alcohol Use: 0 - Recreational Drug Use Recreational Drug Use: No ED ROS GENERAL - Review of Systems Review Of Systems: Unable To Obtain (gathered history from family as much as they knew. Patient is only opening his eyes) ED EXAM, GENERAL - Physical Exam Exam: See Below Exam Limited By: Altered mental status General Appearance: moderate distress Eye Exam: bilateral eye: PERRL, other (unable to determine occular muscle movements due to not following commands) Ears: normal TMs Throat/Mouth: Other (he refuses to open his mouth and in fact clamped it down when I attempted to due an exam ) Head: atraumatic, normocephalic Neck: normal inspection, supple Respiratory/Chest: no respiratory distress, lungs clear, normal breath sounds Cardiovascular: normal peripheral pulses, regular rate, rhythm GI/Abdominal: soft, abnormal bowel sounds: (hypoactive to all 4 quads, visible dried blood on mouth, face and chest) Extremities: normal inspection, no pedal edema, slow capillary refill Neurological: unresponsive (patient opens his eyes, does not follow commands) Skin Exam: Warm, Dry, Intact Lymphatic: no adenopathy Course - Vital Signs Last Recorded V/S: Last Vital Signs Temp 38.6 C H 11/25/16 08:55 Pulse 110 H 11/25/16 11:33 Resp 16 11/25/16 11:33 BP 154/94 H 11/25/16 11:33 Pulse Ox 97 11/25/16 11:33 - Orders/Labs/Meds Orders: Active Orders 24 hr Category Date Time Status BIPAP [RT BiPAP/CPAP] [RC] ASDIRECTED Care 11/25/16 10:31 Active Blood Glucose Check, Bedside [RC] ONETIME Care 11/25/16 09:06 Active EKG Documentation Completion [RC] URGENT Care 11/25/16 09:09 Active [place] Catheter Insertion [Insert Urinary Catheter] [OM. Care 11/25/16 09:45 Ordered PC] Q24H Oxygen Therapy, ED [RC] ASDIRECTED Care 11/25/16 08:55 Active Urinary Catheter Assessment [RC] ASDIRECTED Care 11/25/16 09:34 Active Abdomen Pelvis wo Cont [CT] Stat Exams 11/25/16 09:06 Taken Chest wo Cont [CT] Routine Exams 11/25/16 Taken Head wo Cont [CT] Stat Exams 11/25/16 09:15 Taken CULTURE BLOOD [BC] Stat Lab 11/25/16 09:39 Results CULTURE BLOOD [BC] Stat Lab 11/25/16 09:55 Received Pantoprazole [Protonix IV] 80 mg Med 11/25/16 10:00 Active Sodium Chloride 0.9% [Normal Saline] 250 ml IV ONETIME Vancomycin 1 gm Med 11/25/16 11:16 Active Sodium Chloride 0.9% [Normal Saline] 250 ml IV ONETIME Blood Culture x2 Reflex Set [OM.PC] Stat Oth 11/25/16 09:06 Ordered Medication Orders Pantoprazole Sodium 80 mg/ (Sodium Chloride) 250 mls @ 25 mls/hr IV ONETIME ONE Stop: 11/25/16 19:59 Last Admin: 11/25/16 10:00 Dose: Vancomycin HCl 1 gm/ Sodium (Chloride) 250 mls @ 250 mls/hr IV ONETIME ONE Stop: 11/25/16 12:15 Last Admin: 11/25/16 11:43 Dose: 250 mls/hr Labs: Laboratory Tests 11/25/16 11/25/16 11/25/16 Range/Units 09:11 09:39 09:39 WBC 14.5 H (4.0-10.0) x10^3/uL RBC 4.18 L (4.5-6.0) x10^6/uL Hgb 12.4 L (14.0-18.0) g/dL Hct 38.2 L (40.0-52.0) % MCV 91.4 (78.0-93.0) fL MCH 29.7 (26.0-32.0) pg MCHC 32.5 (32.0-36.0) g/dL RDW Coeff of [place] 15.1 H (10.0-15.0) % Plt Count 222 (130-400) x10^3/uL Neut % (Auto) 85.1 H (50.0-80.0) % Lymph % (Auto) 6.9 L (25.0-50.0) % [place] % (Auto) 7.9 (2.0-11.0) % Eos % (Auto) 0.0 (0.0-4.0) % Baso % (Auto) 0.1 L (0.2-1.2) % PT (10.0-12.8) SEC INR (2.0-3.5) D-Dimer, Quantitative (<=0.58) mg/LFEU POC ABG pH (7.35-7.45) POC ABG pCO2 (35-45) mmHG POC ABG pO2 (80-105) mmHG POC ABG HCO3 (22-26) mmol/L POC ABG Total CO2 (23-27) mmol/L POC ABG O2 Sat (95-98) % POC ABG Base Excess (-2-3) mmol/L POC FiO2 Sodium 138 (136-145) mmol/L Potassium 4.6 (3.5-5.1) mmol/L Chloride 102 (98-107) mmol/L Carbon Dioxide 27 (21-32) mmol/L BUN 40 H (7-18) mg/dL Creatinine 2.5 H (0.70-1.30) mg/dL Est Cr Clr Drug Dosing 21.05 mL/min Estimated GFR (MDRD) 25 Glucose 369 H (74-106) mg/dL POC Glucose 363 H (74-106) mg/dL Lactic Acid (0.4-2.0) mmol/L Calcium 7.7 L (8.5-10.1) mg/dL Corrected Calcium 8.82 (8.5-10.1) mg/dL Total Bilirubin 0.6 (0.2-1.0) mg/dL AST 13 L (15-37) U/L ALT 15 L (16-63) U/L Alkaline Phosphatase 116 (46-116) U/L Creatine Kinase 31 L (39-308) U/L POC Troponin I (0.00-0.08) ng/mL C-Reactive Protein 4.1 H (<=0.9) mg/dL B-Natriuretic Peptide 1185 H (<=450) pg/mL Total Protein 6.2 L (6.4-8.2) g/dL Albumin 2.6 L (3.4-5.0) g/dL Globulin 3.6 Albumin/Globulin Ratio 0.72 Amylase 59 (25-115) U/L Lipase 707 H (73-393) U/L POC Result Comm Urine Color (YELLOW) Urine Appearance (CLEAR) Urine pH (5.0-8.0) Ur Specific [place] Urine Protein (NEGATIVE) mg/dL Urine Glucose (UA) (NEGATIVE) mg/dL Urine Ketones (NEGATIVE) mg/dL Urine Occult Blood (NEGATIVE) Urine Nitrite (NEGATIVE) Urine Bilirubin (NEGATIVE) Urine Urobilinogen (0.2) EU/dL Ur Leukocyte Esterase (NEGATIVE) Urine RBC (NOT SEEN) /HPF Urine WBC (NOT SEEN) /HPF Ur Squamous Epith Cells (NEGATIVE) /HPF Urine Bacteria (NEGATIVE) /HPF Hyaline Casts (NEGATIVE) /HPF Urine Mucus (NEGATIVE) /LPF Blood Type Gel Antibody Screen 11/25/16 11/25/16 11/25/16 Range/Units 09:39 09:39 09:39 WBC (4.0-10.0) x10^3/uL RBC (4.5-6.0) x10^6/uL Hgb (14.0-18.0) g/dL Hct (40.0-52.0) % MCV (78.0-93.0) fL MCH (26.0-32.0) pg MCHC (32.0-36.0) g/dL RDW Coeff of Huber (10.0-15.0) % Plt Count (130-400) x10^3/uL Neut % (Auto) (50.0-80.0) % Lymph % (Auto) (25.0-50.0) % [place] % (Auto) (2.0-11.0) % Eos % (Auto) (0.0-4.0) % Baso % (Auto) (0.2-1.2) % PT 10.7 (10.0-12.8) SEC INR 0.9 L (2.0-3.5) D-Dimer, Quantitative (<=0.58) mg/LFEU POC ABG pH (7.35-7.45) POC ABG pCO2 (35-45) mmHG POC ABG pO2 (80-105) mmHG POC ABG HCO3 (22-26) mmol/L POC ABG Total CO2 (23-27) mmol/L POC ABG O2 Sat (95-98) % POC ABG Base Excess (-2-3) mmol/L POC FiO2 Sodium (136-145) mmol/L Potassium (3.5-5.1) mmol/L Chloride (98-107) mmol/L Carbon Dioxide (21-32) mmol/L BUN (7-18) mg/dL Creatinine (0.70-1.30) mg/dL Est Cr Clr Drug Dosing mL/min Estimated GFR (MDRD) Glucose (74-106) mg/dL POC Glucose (74-106) mg/dL Lactic Acid 3.1 H (0.4-2.0) mmol/L Calcium (8.5-10.1) mg/dL Corrected Calcium (8.5-10.1) mg/dL Total Bilirubin (0.2-1.0) mg/dL AST (15-37) U/L ALT (16-63) U/L Alkaline Phosphatase (46-116) U/L Creatine Kinase (39-308) U/L POC Troponin I (0.00-0.08) ng/mL C-Reactive Protein (<=0.9) mg/dL B-Natriuretic Peptide (<=450) pg/mL Total Protein (6.4-8.2) g/dL Albumin (3.4-5.0) g/dL Globulin Albumin/Globulin Ratio Amylase (25-115) U/L Lipase (73-393) U/L POC Result Comm Urine Color (YELLOW) Urine Appearance (CLEAR) Urine pH (5.0-8.0) Ur Specific [place] Urine Protein (NEGATIVE) mg/dL Urine Glucose (UA) (NEGATIVE) mg/dL Urine Ketones (NEGATIVE) mg/dL Urine Occult Blood (NEGATIVE) Urine Nitrite (NEGATIVE) Urine Bilirubin (NEGATIVE) Urine Urobilinogen (0.2) EU/dL Ur Leukocyte Esterase (NEGATIVE) Urine RBC (NOT SEEN) /HPF Urine WBC (NOT SEEN) /HPF Ur Squamous Epith Cells (NEGATIVE) /HPF Urine Bacteria (NEGATIVE) /HPF Hyaline Casts (NEGATIVE) /HPF Urine Mucus (NEGATIVE) /LPF Blood Type B POSITIVE Gel Antibody Screen Negative 11/25/16 11/25/16 11/25/16 Range/Units 09:39 09:44 10:04 WBC (4.0-10.0) x10^3/uL RBC (4.5-6.0) x10^6/uL Hgb (14.0-18.0) g/dL Hct (40.0-52.0) % MCV (78.0-93.0) fL MCH (26.0-32.0) pg MCHC (32.0-36.0) g/dL RDW Coeff of Huber (10.0-15.0) % Plt Count (130-400) x10^3/uL Neut % (Auto) (50.0-80.0) % Lymph % (Auto) (25.0-50.0) % [place] % (Auto) (2.0-11.0) % Eos % (Auto) (0.0-4.0) % Baso % (Auto) (0.2-1.2) % PT (10.0-12.8) SEC INR (2.0-3.5) D-Dimer, Quantitative 5.01 H (<=0.58) mg/LFEU POC ABG pH 7.433 (7.35-7.45) POC ABG pCO2 33 L (35-45) mmHG POC ABG pO2 51 L* (80-105) mmHG POC ABG HCO3 22 (22-26) mmol/L POC ABG Total CO2 23 (23-27) mmol/L POC ABG O2 Sat 87 L (95-98) % POC ABG Base Excess -2 (-2-3) mmol/L POC FiO2 0.38 Sodium (136-145) mmol/L Potassium (3.5-5.1) mmol/L Chloride (98-107) mmol/L Carbon Dioxide (21-32) mmol/L BUN (7-18) mg/dL Creatinine (0.70-1.30) mg/dL Est Cr Clr Drug Dosing mL/min Estimated GFR (MDRD) Glucose (74-106) mg/dL POC Glucose (74-106) mg/dL Lactic Acid (0.4-2.0) mmol/L Calcium (8.5-10.1) mg/dL Corrected Calcium (8.5-10.1) mg/dL Total Bilirubin (0.2-1.0) mg/dL AST (15-37) U/L ALT (16-63) U/L Alkaline Phosphatase (46-116) U/L Creatine Kinase (39-308) U/L POC Troponin I 0.00 (0.00-0.08) ng/mL C-Reactive Protein (<=0.9) mg/dL B-Natriuretic Peptide (<=450) pg/mL Total Protein (6.4-8.2) g/dL Albumin (3.4-5.0) g/dL Globulin Albumin/Globulin Ratio Amylase (25-115) U/L Lipase (73-393) U/L POC Result Comm Called critical res Urine Color (YELLOW) Urine Appearance (CLEAR) Urine pH (5.0-8.0) Ur Specific [place] Urine Protein (NEGATIVE) mg/dL Urine Glucose (UA) (NEGATIVE) mg/dL Urine Ketones (NEGATIVE) mg/dL Urine Occult Blood (NEGATIVE) Urine Nitrite (NEGATIVE) Urine Bilirubin (NEGATIVE) Urine Urobilinogen (0.2) EU/dL Ur Leukocyte Esterase (NEGATIVE) Urine RBC (NOT SEEN) /HPF Urine WBC (NOT SEEN) /HPF Ur Squamous Epith Cells (NEGATIVE) /HPF Urine Bacteria (NEGATIVE) /HPF Hyaline Casts (NEGATIVE) /HPF Urine Mucus (NEGATIVE) /LPF Blood Type Gel Antibody Screen 11/25/16 Range/Units 10:15 WBC (4.0-10.0) x10^3/uL RBC (4.5-6.0) x10^6/uL Hgb (14.0-18.0) g/dL Hct (40.0-52.0) % MCV (78.0-93.0) fL MCH (26.0-32.0) pg MCHC (32.0-36.0) g/dL RDW Coeff of [place] (10.0-15.0) % Plt Count (130-400) x10^3/uL Neut % (Auto) (50.0-80.0) % Lymph % (Auto) (25.0-50.0) % [place] % (Auto) (2.0-11.0) % Eos % (Auto) (0.0-4.0) % Baso % (Auto) (0.2-1.2) % PT (10.0-12.8) SEC INR (2.0-3.5) D-Dimer, Quantitative (<=0.58) mg/LFEU POC ABG pH (7.35-7.45) POC ABG pCO2 (35-45) mmHG POC ABG pO2 (80-105) mmHG POC ABG HCO3 (22-26) mmol/L POC ABG Total CO2 (23-27) mmol/L POC ABG O2 Sat (95-98) % POC ABG Base Excess (-2-3) mmol/L POC FiO2 Sodium (136-145) mmol/L Potassium (3.5-5.1) mmol/L Chloride (98-107) mmol/L Carbon Dioxide (21-32) mmol/L BUN (7-18) mg/dL Creatinine (0.70-1.30) mg/dL Est Cr Clr Drug Dosing mL/min Estimated GFR (MDRD) Glucose (74-106) mg/dL POC Glucose (74-106) mg/dL Lactic Acid (0.4-2.0) mmol/L Calcium (8.5-10.1) mg/dL Corrected Calcium (8.5-10.1) mg/dL Total Bilirubin (0.2-1.0) mg/dL AST (15-37) U/L ALT (16-63) U/L Alkaline Phosphatase (46-116) U/L Creatine Kinase (39-308) U/L POC Troponin I (0.00-0.08) ng/mL C-Reactive Protein (<=0.9) mg/dL B-Natriuretic Peptide (<=450) pg/mL Total Protein (6.4-8.2) g/dL Albumin (3.4-5.0) g/dL Globulin Albumin/Globulin Ratio Amylase (25-115) U/L Lipase (73-393) U/L POC Result Comm Urine Color Yellow (YELLOW) Urine Appearance Clear (CLEAR) Urine pH 6.0 (5.0-8.0) Ur Specific [place] 1.020 Urine Protein 30 H (NEGATIVE) mg/dL Urine Glucose (UA) 500 H (NEGATIVE) mg/dL Urine Ketones 15 H (NEGATIVE) mg/dL Urine Occult Blood Trace-intact H (NEGATIVE) Urine Nitrite Negative (NEGATIVE) Urine Bilirubin Negative (NEGATIVE) Urine Urobilinogen 0.2 (0.2) EU/dL Ur Leukocyte Esterase Negative (NEGATIVE) Urine RBC 0-5 (NOT SEEN) /HPF Urine WBC 0-5 (NOT SEEN) /HPF Ur Squamous Epith Cells Not seen (NEGATIVE) /HPF Urine Bacteria Few H (NEGATIVE) /HPF Hyaline Casts Few H (NEGATIVE) /HPF Urine Mucus Few H (NEGATIVE) /LPF Blood Type Gel Antibody Screen Meds: Medications Generic Name Dose Route Start Last Admin Trade Name Freq PRN Reason Stop Dose Admin Pantoprazole Sodium 80 mg/ 250 mls @ 25 mls/hr 11/25/16 10:00 11/25/16 10:00 Sodium Chloride IV 11/25/16 19:59 Not Given ONETIME ONE Vancomycin HCl 1 gm/ Sodium 250 mls @ 250 mls/hr 11/25/16 11:16 11/25/16 11: 43 Chloride IV 11/25/16 12:15 250 mls/hr ONETIME ONE Administration Discontinued Medications Generic Name Dose Route Start Last Admin Trade Name Freq PRN Reason Stop Dose Admin Pantoprazole Sodium 80 mg/ 250 mls @ 25 mls/hr 11/25/16 09:30 11/25/16 09:51 Sodium Chloride IV 25 mls/hr Q10H JIGAR Administration Sodium Chloride 1,000 mls @ 999 mls/hr 11/25/16 09:33 11/25/16 09:00 Normal Saline IV 11/25/16 10:33 999 mls/hr .BOLUS ONE Administration Meropenem 1 gm/ Sodium 100 mls @ 200 mls/hr 11/25/16 11:15 Chloride IV 11/25/16 11:44 ONETIME ONE Insulin Aspart 10 unit 11/25/16 09:14 11/25/16 09:41 Novolog SUBCUT 11/25/16 09:15 10 unit ONETIME ONE Administration Meropenem 1 gm 11/25/16 11:30 11/25/16 11:41 Merrem IVPUSH 11/25/16 11:31 1 gm ONETIME ONE Administration Pantoprazole Sodium 40 mg 11/25/16 09:13 11/25/16 09:35 Protonix Iv IVPUSH 11/25/16 09:14 40 mg ONETIME ONE Administration Departure - Departure Time of Disposition: 11:57 Disposition: DC/Tfer to Other 70 Condition: poor Clinical Impression: Hypoxemia, Hyperglycemia, Sepsis Referrals: Martín Sharma MD [Primary Care Provider] - Forms: ED Department Discharge, Interfacility Transfer EMTALA - My Orders Last 24 Hours: My Active Orders 11/25/16 Chest wo Cont [CT] Routine 11/25/16 08:55 Oxygen Therapy, ED [RC] ASDIRECTED 11/25/16 09:06 Blood Glucose Check, Bedside [RC] ONETIME Abdomen Pelvis wo Cont [CT] Stat Blood Culture x2 Reflex Set [OM.PC] Stat 11/25/16 09:09 EKG Documentation Completion [RC] URGENT 11/25/16 09:15 Head wo Cont [CT] Stat 11/25/16 09:34 Urinary Catheter Assessment [RC] ASDIRECTED 11/25/16 09:39 CULTURE BLOOD [BC] Stat 11/25/16 09:45 [place] Catheter Insertion [Insert Urinary Catheter] [OM.PC] Q24H 11/25/16 09:55 CULTURE BLOOD [BC] Stat 11/25/16 10:00 Pantoprazole [Protonix IV] 80 mg Sodium Chloride 0.9% [Normal Saline] 250 ml IV ONETIME 11/25/16 10:31 BIPAP [RT BiPAP/CPAP] [RC] ASDIRECTED 11/25/16 11:16 Vancomycin 1 gm Sodium Chloride 0.9% [Normal Saline] 250 ml IV ONETIME - Assessment/Plan Last 24 Hours: My Active Orders 11/25/16 Chest wo Cont [CT] Routine 11/25/16 08:55 Oxygen Therapy, ED [RC] ASDIRECTED 11/25/16 09:06 Blood Glucose Check, Bedside [RC] ONETIME Abdomen Pelvis wo Cont [CT] Stat Blood Culture x2 Reflex Set [OM.PC] Stat 11/25/16 09:09 EKG Documentation Completion [RC] URGENT 11/25/16 09:15 Head wo Cont [CT] Stat 11/25/16 09:34 Urinary Catheter Assessment [RC] ASDIRECTED 11/25/16 09:39 CULTURE BLOOD [BC] Stat 11/25/16 09:45 [place] Catheter Insertion [Insert Urinary Catheter] [OM.PC] Q24H 11/25/16 09:55 CULTURE BLOOD [BC] Stat 11/25/16 10:00 Pantoprazole [Protonix IV] 80 mg Sodium Chloride 0.9% [Normal Saline] 250 ml IV ONETIME 11/25/16 10:31 BIPAP [RT BiPAP/CPAP] [RC] ASDIRECTED 11/25/16 11:16 Vancomycin 1 gm Sodium Chloride 0.9% [Normal Saline] 250 ml IV ONETIME
[2016-11-25] MEDS ORDERED: Meropenem 1 GM in Sodium Chloride 0.9% 100 ML IV ONE (11:15)
[2016-11-25] MEDS ORDERED: Meropenem 1 GM SDV IVPUSH ONE (11:30)
[2016-11-25 11:34] VITALS: BP 154/94
== END 2016-11-25 12:00 | disposition other institution (70) ==
LOC: VM.ED 08:54
DX: A41.9 Sepsis, unspecified organism (principal); R09.02 Hypoxemia; E11.65 Type 2 diabetes mellitus with hyperglycemia; E78.00 Pure hypercholesterolemia, unspecified; I12.9 Hypertensive chronic kidney disease with stage 1 through stage 4 chronic kidney disease, or unspecified chronic kidney disease; N18.9 Chronic kidney disease, unspecified; Z88.0 Allergy status to penicillin; Z79.82 Long term (current) use of aspirin; Z79.899 Other long term (current) drug therapy; Z79.4 Long term (current) use of insulin
CPT/HCPCS: 36415; 36600; 70450; 71250; 74176; 80053; 81001; 82150; 82550; 82803; 82962; 83605; 83690; 83880; 84484; 85025; 85379; 85610; 86140; 86850; 86900; 86901; 87040; 93005; 96361; 96365; 96366; 99285; C9113; J2185; J3370; J7030; J7050

== ENCOUNTER 2016-11-30 12:32 | Inpatient (IN) | payer MEDICARE, OTHER ==
--- NOTE | 2016-11-30 15:26 | PCM.HP ---
H&P History of Present Illness - General Date of Service: 11/30/16 Admit Problem/Dx: Admission Diagnosis/Problem Admission Diagnosis/Problem Pneumonia - History of Present Illness Initial Comments - Free Text/Narative: HPI: After 2 recent [address]izations [address] [facility], the first for sepsis secondary to cholecystitis, at which time he had cholecystostomy tube drainage placed because he was not felt to be a candidate for cholecystectomy yet, and poorly controlled diabetes, being started on insulin, then a brief swing bed stay, then the second hospitalization for hemoptysis, negative for pulmonary embolus so back to swing bed again. It was first thought he would require correction , but he improved, his blood sugars came under good control with decreasing his Lantus down to 10 units daily, so he was sent home on Tanzeum 50 mg subcu weekly and Lantus 10 units daily, with Home Care. He had trouble taking his medications because of his tremor, and after 10 days at home he was found on the floor by his family with blood on the floor, possibly a GI bleed and was unresponsive. No beds were available in [place], so he went to [facility] in . Admitted there with presumed encephalopathy secondary to sepsis, EEG was nonspecific and plans for lumbar puncture were apparently canceled. He was given meropenem and vancomycin, blood cultures remained negative, and his cognition was considerably better by the next day. He continued to have stage 4 CKD, creatinine was still 2.3, which is unchanged from previous. His Hb fell from 11.6 down to 9.0 but he did not require transfusion. MRI was negative. He was felt to have chronic and acute respiratory failure, required oxygen at first but after a few days was weaned off. He had Neuro consult but was feeling much better by that time so no F/U is planned. He is sent back to Swing Bed at [facility] on Cipro and doxycycline, has improved enough to walk with a walker. He is still on sliding scale, but mainly Tanzeum and Lantus 10 units. His insurance company is switching him from Tanzeum to Trulicity after the one dose that he has left.td Medical History: -Severe ear infection R ear as child, hearing loss -Started Rx for hyperlipidemia approx '00 -Dx diabetes , see above -Hypertension, Rx started 08/23, poorly compliant w. F/U -Saw Dr. Venegas for severe degenerative arthritis -05/30 low B12 but pt refuses to add any "new pills" -03/01, 05/03 still no colonoscopy for positive Hemoccult, refusing -06/03 Told to D/C metformin because of GFR >> Only came to clinic for annual PE, on glipizide but refused insulin even though A1c 10.5 in 06/05, 11.2 in 08/05, 7.6 after starting Tanzeum, 10.7 in 08/07, 11.2 in 09/06 -Hosp 10/[address] [facility] for staph aureus sepsis, acute cholecystitis, acute kidney failure, hypoglycemia, got cholecystostomy with drainage tube, unable to have surgery yet; required insulin on this hospitalization, D/Cd to Swing Bed at [facility] Sent back to [facility] 11/08 with hemoptysis, suspected PE but negative, again back to Swing Bed at [facility] 10/30/16, gradually improved, Lantus insulin dose had to be decreased from 30 down to 10 units, D/Cd home on Tanzeum and Lantus 10 units with Home Care 11/08 started regular Nephrology F/U -11/08, Hosp diverted to [facility] in for GI bleed and acute encephalopathy, thought to be septic again, Rx meropenem and vancomycin, improved quickly, back to Swing Bed at [facility] Surgical History: -[place] [facility], then severe infection L leg, bacteremia '57 -Fx L index fingertip -Cellulitis R long finger, saw Dr. Chavarria, 02/20 -Mohs surgery for BCC R cheek 04/23 Bilateral cataract extraction, R 08/05, L 09/04 05/03 told to get surgery for obvious BCC helix L ear but refused, it never grew very much but is still ulcerated -Cholecystostomy tube drainage placed 10/08, see above, hopes to have cholecystectomy when stronger in 12/06 or 01/06 Family History: -Says almost everyone on both sides had tremor -F d. age 87 in 06/24, had arrhythmia, during complications of pacemaker implantation -M. d. 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 Lives across [address] from clinic. 2 gypsy's, one Claudia George in [facility] has gypsy verdin cerebral palsy, her phone number [phone], and she says that she and her brother Christopher are certified durable power of erisa attorney for health care, so we should let one of them know when something happens. 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 Son Christopher has grandchildren . Systems Review: Constitutional: Remembers only a little of being T/F to [facility], but improved by the next day, feeling quite good again Eyes: OK, says he can read all right, NB bilateral cataract extraction ENT: Hearing has been decreased for 30 years and he has constant tinnitus Cardiac: Denies any heart trouble or chest pain during his recent hospitalization; in the past he developed severe hyperkalemia from ACEI Pulmonary: Still has a dry cough but has been weaned from oxygen again; his CXR at [facility] showed an interstitial infiltrate; negligible smoking Hx GI: Hx positive fecal occult blood but refused colonoscopy; denies constipation or diarrhea, but after the antibiotic he did have 3 loose stools last evening : Denies any bladder problems; note he has stage 4 CKD, probably from diabetes ; his creatinine has actually been steadily rising for about 10 years Musculoskeletal: Always lots of trouble with arthritis especially hands and knees, but has been walking with a walker the past few days Neuro: Denies headache or problems now Endocrine: See HPI Derm: The lesion on his L ear remains ulcerated but has never grown, 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 Heme: Hb dropped from 11.6-9.0 on this last hospitalization but did not require transfusion Psych: On his previous Swing Bed stay family and staff questioned depression but he perked up as soon as it became apparent he would be going home, and denies any problems since Allergies: No seasonal allergies - Related Data Allergies/Adverse Reactions: Allergies Allergy/AdvReac Type Severity Reaction Status Date / Time Penicillins AdvReac Stomach Verified 11/25/16 09:24 Ache Home Medications: Home Meds Cyanocobalamin (Vitamin B-12) [B-12] 1,000 mcg PO DAILY 10/14/16 [History] Magnesium Oxide 400 mg PO BIDMEALS 10/24/16 [History] Albiglutide [Tanzeum] 50 mg SQ Q7D 11/08/16 [History] Insulin Glargine,Hum.Rec.Anlog [Lantus Solostar] 10 unit SQ DAILY #3 ml [Rx] Aspirin [Adult Low Dose Aspirin EC] 81 mg PO DAILY 11/30/16 [History] Ciprofloxacin [Ciprofloxacin HCl] 500 mg PO BID 11/30/16 [History] Doxycycline Hyclate 100 mg PO BID 11/30/16 [History] Pantoprazole [Protonix] 40 mg PO BIDAC 11/30/16 [History] Propranolol [Propranolol CR 24 Hr] 120 mg PO DAILY 11/30/16 [History] Past Medical History HEENT History: Reports: Cataract, Hard of hearing, Impaired vision Cardiovascular History: Reports: High cholesterol, Hypertension Respiratory History: Reports: Intubation, previous Gastrointestinal History: Reports: Other (see below) Other Gastrointestinal History: gall bladder infection Genitourinary History: Reports: Chronic renal insuffiency, Urinary incontinence , UTI, recurrent, Other (see below) Other Genitourinary History: ole lal'rustam this am Musculoskeletal History: Reports: None Neurological History: Reports: None Psychiatric History: Reports: None Endocrine/Metabolic History: Reports: Diabetes, type II Hematologic History: Reports: B12 deficiency Immunologic History: Reports: None Oncologic (Cancer) History: Reports: Basal cell carcinoma Dermatologic History: Reports: Other (see below) Other Dermatologic History: has skin disorder for many years - Infectious Disease History Infectious Disease History: Reports: MRSA, Other (see below) Other Infectious Disease History: hx - Past Surgical History Head Surgeries/Procedures: Reports: None HEENT Surgical History: Reports: None Respiratory Surgical History: Reports: None GI Surgical History: Reports: Other (see below) Other GI Surgeries/Procedures: gall bladder drain Male Surgical History: Reports: None Neurological Surgical History: Reports: None Musculoskeletal Surgical History: Reports: None Dermatological Surgical History: Reports: None Social & Family History - Family History Family Medical History: Noncontributory - Tobacco Use Smoking Status *Q: Former Smoker Second Hand Smoke Exposure: No - Caffeine Use Caffeine Use: Reports: None - Alcohol Use Days Per Week of Alcohol Use: 0 - Recreational Drug Use Recreational Drug Use: No H&P Review of Systems - Review of Systems: Review Of Systems: See Below Exam - Exam Exam: See Below - Vital Signs Vital Signs: Last Vital Signs Temp 36.4 C 11/30/16 12:38 Pulse 76 11/30/16 12:38 Resp 20 11/30/16 12:38 BP 106/59 L 11/30/16 12:38 Pulse Ox 93 L 11/30/16 15:14 Weight: 62.596 kg - Exam Physical Exam Comments:: Physical Exam: General: Alert and answers questions appropriately, looks as healthy as he did on his last Swing Bed D/C Eyes: Pupils equal, EOMs normal ENT: TMs normal color with good light reflex, has poor hearing; only a few lower teeth remaining; his tongue has always been a bit smooth Cardiac: Heart sounds normal and regular Pulmonary: Does have a dry cough, a few coarse inspiratory rales which do not clear completely with coughing Abdomen: Soft and nontender without organomegaly; has a cholecystostomy tube sutured in the RUQ : BRENDA not done Extremities: Thickening and decreased movement of his hands; no ankle edema; both knees lack about 10 of full extension; not able to palpate pulses in feet Skin: Generalized congenital ichthyosis, otherwise unremarkable Neurological: Did not test sensation in feet; he has a marked essential tremor bilateral Psych: Cheerful, affect seems normal *Q Meaningful Use (ADM) - VTE *Q VTE Criteria *Q: - Stroke *Q Stroke Criteria *Q: - AMI *Q AMI Criteria *Q: Problem List Initiated/Reviewed/Updated: Yes Orders Last 24hrs: Active Orders 24 hr Category Date Time Status Patient Status [ADT] Routine ADT 11/30/16 12:31 Active Patient Status [ADT] Routine ADT 11/30/16 15:14 Ordered Blood Glucose Check, Bedside [RC] TIDAC Care 11/30/16 15:18 Ordered Communication Order [RC] ASDIRECTED Care 12/01/16 09:00 Active Drain Management [RC] 06,18 Care 11/30/16 18:00 Active Drain Management [RC] DAILY Care 12/01/16 08:00 Active Oxygen Therapy [RC] PRN Care 11/30/16 15:14 Ordered VTE/DVT Education [RC] PER UNIT ROUTINE Care 11/30/16 15:14 Ordered Vital Signs [RC] Q4H Care 11/30/16 15:14 Ordered Consult to Speech Language Pathology [KILN FIREMAN Evaluation Cons 11/30/16 12:00 Active and Treatment] [CONS] Routine OT Evaluation and Treatment [CONS] Routine Cons 11/30/16 12:00 Active PT Evaluation and Treatment [CONS] Routine Cons 11/30/16 12:00 Active PT Evaluation and Treatment [CONS] Routine Cons 11/30/16 15:20 Ordered Mechanical Soft Diet [DIET] Diet 11/30/16 Lunch Active BASIC METABOLIC PANEL,BMP [CHEM] Routine Lab 12/02/16 07:30 Ordered CULTURE MRSA SURVEY [RM] Routine Lab 11/30/16 12:40 Received Albiglutide [Tanzeum] Med 11/30/16 15:30 Ordered 50 mg SQ Q7D Aspirin [Halfprin] Med 12/01/16 08:00 Ordered 81 mg PO DAILY Ciprofloxacin [Ciprofloxacin HCl] Med 11/30/16 20:00 Ordered 500 mg PO BID Cyanocobalamin (Vitamin B12) [Vitamin B12] Med 12/01/16 08:00 Ordered 1,000 mcg PO DAILY Doxycycline [Vibramycin] Med 11/30/16 20:00 Ordered 100 mg PO BID Insulin Glarg,Human.Rec.Analog [LantUS Solostar] Med 12/01/16 08:00 Ordered 10 units SUBCUT DAILY Magnesium Oxide Med 11/30/16 18:00 Ordered 400 mg PO BIDMEALS Pantoprazole [Protonix] Med 11/30/16 17:00 Ordered 40 mg PO BIDAC Propranolol [Inderal LA] Med 12/01/16 08:00 Ordered 120 mg PO DAILY Code Status [Resuscitation Status] Routine Resus Stat 11/30/16 15:09 Ordered Medication Orders Aspirin (Halfprin) 81 mg PO DAILY [facility] Ciprofloxacin (Ciprofloxacin Hcl) 500 mg PO BID [facility] Cyanocobalamin (Vitamin B12) 1,000 mcg PO DAILY [facility] Doxycycline Hyclate (Vibramycin) 100 mg PO BID [facility] Insulin Glargine (Lantus Solostar) 10 units SUBCUT DAILY [facility] Magnesium Oxide (Magnesium Oxide) 400 mg PO BIDMEALS [facility] Non-Formulary Medication (Albiglutide [Tanzeum]) 50 mg SQ Q7D [facility] Non-Formulary Medication (Propranolol [Inderal La]) 120 mg PO DAILY [facility] Pantoprazole Sodium (Protonix) 40 mg PO BIDAC [facility] Assessment/Plan Comment:: Impression: -Recent hospitalization for encephalopathy, probably from sepsis, improved rapidly -Diabetes type 2, requires insulin now, just Lantus along with his Tanzeum; no longer on metformin because of CKD -Chronic Kidney Disease, stage 4, back to baseline -Hx severe hyperkalemia from ACEI, avoid this -Cholecystostomy tube drainage, so far unable to tolerate cholecystectomy but hopes to soon Plan: -Continue Cipro and doxycycline per his D/C from [facility] -D/C the insulin sliding scale, just give Lantus 10 units and Tanzeum 50 mg, after one dose will have formulary switch to Trulicity -As before he will be Full Code status -Anticipate D/C to his home again with Home Care as he had on his last stay
[2016-11-30] MEDS: Pantoprazole 40 MG Tab.CR PO SCH (15:59)
[2016-11-30] MEDS ORDERED: ALBIGLUTIDE 50 MG SQ SCH (16:00)
[2016-11-30] MEDS: Magnesium Oxide 400 MG Tab PO SCH (17:04)
[2016-11-30] MEDS ORDERED: Acetaminophen 325 MG Tab PO PRN (18:21)
[2016-11-30] MEDS: Ciprofloxacin 500 MG Tab PO SCH (19:36)
[2016-11-30] MEDS: Doxycycline 100 MG Cap PO SCH (19:36)
[2016-12-01] MEDS: Pantoprazole 40 MG Tab.CR PO SCH ×2 (06:42→16:39)
[2016-12-01] MEDS: Insulin Glargine,Human Rec. Analog 100 Units/ML 3 ML Pen SUBCUT SCH (07:53)
[2016-12-01] MEDS: Cyanocobalamin (Vitamin B12) 1,000 MCG Tab PO SCH (07:54)
[2016-12-01] MEDS: Doxycycline 100 MG Cap PO SCH ×2 (07:54→19:10)
[2016-12-01] MEDS: Ciprofloxacin 500 MG Tab PO SCH ×2 (07:54→19:10)
[2016-12-01] MEDS: Aspirin 81 MG Tab.EC PO SCH (07:54)
[2016-12-01] MEDS: Magnesium Oxide 400 MG Tab PO SCH ×2 (07:54→17:37)
[2016-12-01] MEDS: Propranolol 60 MG Cap.ER PO SCH (07:54)
[2016-12-02] MEDS: Pantoprazole 40 MG Tab.CR PO SCH ×2 (06:04→17:22)
[2016-12-02] MEDS: Insulin Glargine,Human Rec. Analog 100 Units/ML 3 ML Pen SUBCUT SCH (07:50)
[2016-12-02] MEDS: Cyanocobalamin (Vitamin B12) 1,000 MCG Tab PO SCH (07:51)
[2016-12-02] MEDS: Aspirin 81 MG Tab.EC PO SCH (07:51)
[2016-12-02] MEDS: Propranolol 60 MG Cap.ER PO SCH (07:51)
[2016-12-02] MEDS: Doxycycline 100 MG Cap PO SCH ×2 (07:51→20:14)
[2016-12-02] MEDS: Ciprofloxacin 500 MG Tab PO SCH ×2 (07:51→20:14)
[2016-12-02] MEDS: Magnesium Oxide 400 MG Tab PO SCH ×2 (07:51→17:22)
[2016-12-03] MEDS: Pantoprazole 40 MG Tab.CR PO SCH ×2 (06:36→17:19)
[2016-12-03] MEDS: Magnesium Oxide 400 MG Tab PO SCH ×2 (08:14→17:19)
[2016-12-03] MEDS: Doxycycline 100 MG Cap PO SCH ×2 (08:14→20:16)
[2016-12-03] MEDS: Ciprofloxacin 500 MG Tab PO SCH ×2 (08:14→20:17)
[2016-12-03] MEDS: Cyanocobalamin (Vitamin B12) 1,000 MCG Tab PO SCH (08:14)
[2016-12-03] MEDS: Aspirin 81 MG Tab.EC PO SCH (08:14)
[2016-12-03] MEDS: Propranolol 60 MG Cap.ER PO SCH (08:14)
[2016-12-03] MEDS: Insulin Glargine,Human Rec. Analog 100 Units/ML 3 ML Pen SUBCUT SCH (08:15)
[2016-12-03] MEDS ORDERED: Insulin Aspart 100 Units/ML 3 ML Pen SUBCUT ONE (11:18)
[2016-12-03] MEDS: Insulin Aspart 100 Units/ML 3 ML Pen SUBCUT SCH ×2 (12:15→18:31)
[2016-12-04] MEDS: Pantoprazole 40 MG Tab.CR PO SCH ×2 (06:23→17:10)
[2016-12-04] MEDS: Ciprofloxacin 500 MG Tab PO SCH ×2 (06:23→20:30)
[2016-12-04] MEDS: Magnesium Oxide 400 MG Tab PO SCH ×2 (08:17→17:10)
[2016-12-04] MEDS: Aspirin 81 MG Tab.EC PO SCH (08:17)
[2016-12-04] MEDS: Doxycycline 100 MG Cap PO SCH ×2 (08:17→20:49)
[2016-12-04] MEDS: Propranolol 60 MG Cap.ER PO SCH (08:17)
[2016-12-04] MEDS: Cyanocobalamin (Vitamin B12) 1,000 MCG Tab PO SCH (08:17)
[2016-12-04] MEDS: Insulin Aspart 100 Units/ML 3 ML Pen SUBCUT SCH (08:18)
[2016-12-04] MEDS: Insulin Glargine,Human Rec. Analog 100 Units/ML 3 ML Pen SUBCUT SCH (08:19)
--- NOTE | 2016-12-04 09:48 | PCM.PN ---
- General Info Date of Service: 12/04/16 - Review of Systems Systems Review Comment:: No exam today he is in [place] for his appointment. Yesterday I increased his Lantus up to 15 units because he had a random reading over 300. Today his a.m. fasting is 135, so we cannot increase his basal insulin any further. In anticipation of him going home, where he will not be able to take mealtime insulin, I am discontinuing his mealtime insulin except 10 units p.r.n. when his pre-meal reading is > 200. - Patient Data Vitals - most recent: Last Vital Signs Temp 36.6 C 12/04/16 05:54 Pulse 71 12/04/16 05:54 Resp 18 12/04/16 05:54 BP 140/79 12/04/16 05:54 Pulse Ox 91 L 12/04/16 07:23 Weight - most recent: 62.596 kg I&O - last 24 hours: Intake & Output 12/03/16 12/04/16 12/04/16 22:59 06:59 14:59 Output Total 7 Balance -7 Lab Results last 24 hrs: Laboratory Results - last 24 hr 12/03/16 12/03/16 12/03/16 Range/Units 11:09 12:17 17:18 POC Glucose 384 H 336 H 103 (74-106) mg/dL 12/04/16 Range/Units 06:26 POC Glucose 134 H (74-106) mg/dL Med Orders - Current: Current Medications Acetaminophen (Tylenol) 650 mg PO Q4H PRN PRN Reason: Pain Last Admin: 11/30/16 19:36 Dose: 650 mg Aspirin (Halfprin) 81 mg PO DAILY [facility] Last Admin: 12/04/16 08:17 Dose: 81 mg Ciprofloxacin (Ciprofloxacin Hcl) 500 mg PO BID@0700,2000 [facility] Stop: 12/07/16 08:01 Last Admin: 12/04/16 06:23 Dose: 500 mg Cyanocobalamin (Vitamin B12) 1,000 mcg PO DAILY [facility] Last Admin: 12/04/16 08:17 Dose: 1,000 mcg Doxycycline Hyclate (Vibramycin) 100 mg PO BID [facility] Stop: 12/07/16 08:01 Last Admin: 12/04/16 08:17 Dose: 100 mg Insulin Aspart (Novolog) 10 unit SUBCUT TIDMEALS PRN PRN Reason: Blood Glucose Insulin Glargine (Lantus Solostar) 15 units SUBCUT DAILY [facility] Last Admin: 12/04/16 08:19 Dose: 15 units Magnesium Oxide (Magnesium Oxide) 400 mg PO BIDMEALS [facility] Last Admin: 12/04/16 08:17 Dose: 400 mg Albiglutide (Tanzeum ) 50 Mg Solution Own Med 0 mg SQ Q7D [facility] Last Admin: 11/30/16 16:29 Dose: 50 mg Pantoprazole Sodium (Protonix) 40 mg PO BIDAC [facility] Last Admin: 12/04/16 06:23 Dose: 40 mg Propranolol HCl (Inderal La) 120 mg PO DAILY [facility] Last Admin: 12/04/16 08:17 Dose: 120 mg Discontinued Medications Ciprofloxacin (Ciprofloxacin Hcl) 500 mg PO BID [facility] Last Admin: 12/03/16 08:14 Dose: 500 mg Insulin Aspart (Novolog) 5 - 10 unit SUBCUT TIDMEALS [facility] Last Admin: 12/04/16 08:18 Dose: 5 units Insulin Aspart (Novolog) 5 unit SUBCUT NOW ONE Stop: 12/03/16 11:19 Last Admin: 12/03/16 11:27 Dose: 5 units Insulin Glargine (Lantus Solostar) 10 units SUBCUT DAILY [facility] Last Admin: 12/02/16 07:50 Dose: 10 units - Problem List Review Problem List Initiated/Reviewed/Updated: Yes - My Orders Last 24 Hours: My Active Orders 12/03/16 20:00 Ciprofloxacin [Ciprofloxacin HCl] 500 mg PO BID@0700,199912/04/16 09:44 Insulin Aspart [NovoLOG] 10 unit SUBCUT TIDMEALS PRN - Plan Plan:: Impression: -Recent hospitalization for encephalopathy, probably from sepsis, improved rapidly -Diabetes type 2, requires insulin now, just Lantus along with his Tanzeum; no longer on metformin because of CKD -Chronic Kidney Disease, stage 4, back to baseline -Hx severe hyperkalemia from ACEI, avoid this -Cholecystostomy tube drainage, so far unable to tolerate cholecystectomy but hopes to soon Plan: -Continue Cipro and doxycycline per his D/C from [facility] -As of 12/04, he will miss his dose of Tanzeum this week, start Trulicity when he goes home, now on Lantus 15 units, with NovoLog only when his pre-meal reading is > 200 -As before he will be Full Code status -Anticipate D/C to his home again with Home Care as he had on his last stay
[2016-12-04] MEDS: Insulin Aspart 100 Units/ML 3 ML Pen SUBCUT PRN (17:10)
[2016-12-05] MEDS: Ciprofloxacin 500 MG Tab PO SCH ×2 (06:07→21:18)
[2016-12-05] MEDS: Pantoprazole 40 MG Tab.CR PO SCH ×2 (06:07→17:43)
[2016-12-05] MEDS: Doxycycline 100 MG Cap PO SCH ×2 (07:37→21:18)
[2016-12-05] MEDS: Aspirin 81 MG Tab.EC PO SCH (07:37)
[2016-12-05] MEDS: Magnesium Oxide 400 MG Tab PO SCH ×2 (07:37→17:43)
[2016-12-05] MEDS: Cyanocobalamin (Vitamin B12) 1,000 MCG Tab PO SCH (07:37)
[2016-12-05] MEDS: Insulin Glargine,Human Rec. Analog 100 Units/ML 3 ML Pen SUBCUT SCH (07:38)
[2016-12-05] MEDS: Propranolol 60 MG Cap.ER PO SCH (07:38)
[2016-12-05] MEDS: Insulin Aspart 100 Units/ML 3 ML Pen SUBCUT PRN (12:01)
[2016-12-06 05:35] VITALS: BP 144/81
[2016-12-06] MEDS: Ciprofloxacin 500 MG Tab PO SCH (06:50)
[2016-12-06] MEDS: Pantoprazole 40 MG Tab.CR PO SCH (06:50)
[2016-12-06] MEDS: Cyanocobalamin (Vitamin B12) 1,000 MCG Tab PO SCH (07:41)
[2016-12-06] MEDS: Magnesium Oxide 400 MG Tab PO SCH (07:41)
[2016-12-06] MEDS: Propranolol 60 MG Cap.ER PO SCH (07:41)
[2016-12-06] MEDS: Doxycycline 100 MG Cap PO SCH (07:41)
[2016-12-06] MEDS: Insulin Glargine,Human Rec. Analog 100 Units/ML 3 ML Pen SUBCUT SCH (07:41)
[2016-12-06] MEDS: Aspirin 81 MG Tab.EC PO SCH (07:41)
--- NOTE | 2016-12-06 11:55 | PCM.DCSUM1 ---
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 in because of unresponsiveness, small GI bleed with vomiting blood, elevated blood sugar. He was thought to be septic, got IV antibiotic, later changed to Cipro and doxycycline for one week, sent back to Swing Bed for recuperation. Still has cholecystostomy tube drainage for acute cholecystitis. Initial Findings: Exam unchanged, alert and able to walk with walker; still has cholecystostomy tube. Treatment and Course in Hospital: On Lantus 10 units his a.m. readings were still in the 200s so that was increased to 15 units and his a.m. readings were good. He had a high postprandial readings had a few doses of NovoLog at mealtime but that was D/Cd before hospital D/C because he wont be able to take it at home. He went back for Surgery consult and is scheduled to have his gallbladder out on 12/24/16. Condition on Discharge: -Heart sounds distant but normal and regular. -Lungs clear -Abdomen soft, still has cholecystostomy tube -BP mildly elevated, 144/81 Discharge Plan: -DC doxycycline and Cipro, they were to be stopped tomorrow anyway -Continue Lantus 15 units q.a.m., no mealtime insulin -Formulary change from Tanzeum to Trulicity -Home Care, along with family visits frequently, because he is not able to give his own insulin or Trulicity because of his tremor -Full Code status -See INGRID in 2 weeks - Discharge Data Discharge Date: 12/06/16 Discharge Disposition: Home, W Home Health Agency 06 Condition: Good - Patient Summary/Data Consults: Consultations 11/30/16 12:00 Consult to Speech Language Pathology [VETERINARY MEDICAL OFFICER Evaluation and Treatment] [CONS] Routine OT Evaluation and Treatment [CONS] Routine PT Evaluation and Treatment [CONS] Routine 11/30/16 15:20 PT Evaluation and Treatment [CONS] Routine - Discharge Plan Home Medications: Home Meds Cyanocobalamin (Vitamin B-12) [B-12] 1,000 mcg PO DAILY 10/14/16 [History] Magnesium Oxide 400 mg PO BIDMEALS 10/24/16 [History] Aspirin [Adult Low Dose Aspirin EC] 81 mg PO DAILY 11/30/16 [History] Pantoprazole [Protonix] 40 mg PO BIDAC 11/30/16 [History] Propranolol [Inderal LA] 120 mg PO DAILY 11/30/16 [History] Insulin Glarg,Human.Rec.Analog [LantUS Solostar] 15 units SUBCUT DAILY pen [Rx] Simvastatin [Zocor] 40 mg PO BEDTIME tablet 12/06/16 [Rx] Referrals: Martín Sharma MD [Primary Care Provider] - 12/16/16 10:00 am (You have a follow up appt. with Dr. Sharma on December 16, 2016 at10AM [facility]) - Patient Data Vitals - Most Recent: Last Vital Signs Temp 37.2 C 12/06/16 05:33 Pulse 80 12/06/16 05:33 Resp 18 12/06/16 05:33 BP 144/81 H 12/06/16 05:33 Pulse Ox 98 12/06/16 05:33 Weight - Most Recent: 62.596 kg I&O - Last 24 hours: Intake & Output 12/05/16 12/06/16 12/06/16 22:59 06:59 14:59 Intake Total 300 Balance 300 Lab Results - Last 24 hrs: Laboratory Results - last 24 hr 12/05/16 12/06/16 Range/Units 17: 05:55 POC Glucose 94 110 H (74-106) mg/dL Med Orders - Current: Current Medications Discontinued Medications Acetaminophen (Tylenol) 650 mg PO Q4H PRN PRN Reason: Pain Last Admin: 11/30/16 19:36 Dose: 650 mg Aspirin (Halfprin) 81 mg PO DAILY [facility] Last Admin: 12/06/16 07:41 Dose: 81 mg Ciprofloxacin (Ciprofloxacin Hcl) 500 mg PO BID [facility] Last Admin: 12/03/16 08:14 Dose: 500 mg Ciprofloxacin (Ciprofloxacin Hcl) 500 mg PO BID@0700,2000 [facility] Stop: 12/07/16 08:01 Last Admin: 12/06/16 06:50 Dose: 500 mg Cyanocobalamin (Vitamin B12) 1,000 mcg PO DAILY [facility] Last Admin: 12/06/16 07:41 Dose: 1,000 mcg Doxycycline Hyclate (Vibramycin) 100 mg PO BID [facility] Stop: 12/07/16 08:01 Last Admin: 12/06/16 07:41 Dose: 100 mg Insulin Aspart (Novolog) 5 - 10 unit SUBCUT TIDMEALS [facility] Last Admin: 12/04/16 08:18 Dose: 5 units Insulin Aspart (Novolog) 5 unit SUBCUT NOW ONE Stop: 12/03/16 11:19 Last Admin: 12/03/16 11:27 Dose: 5 units Insulin Aspart (Novolog) 10 unit SUBCUT TIDMEALS PRN PRN Reason: Blood Glucose Last Admin: 12/05/16 12:01 Dose: 10 units Insulin Glargine (Lantus Solostar) 10 units SUBCUT DAILY [facility] Last Admin: 12/02/16 07:50 Dose: 10 units Insulin Glargine (Lantus Solostar) 15 units SUBCUT DAILY [facility] Last Admin: 12/06/16 07:41 Dose: 15 units Magnesium Oxide (Magnesium Oxide) 400 mg PO BIDMEALS [facility] Last Admin: 12/06/16 07:41 Dose: 400 mg Albiglutide (Tanzeum ) 50 Mg Solution Own Med 0 mg SQ Q7D [facility] Last Admin: 11/30/16 16:29 Dose: 50 mg Pantoprazole Sodium (Protonix) 40 mg PO BIDAC [facility] Last Admin: 12/06/16 06:50 Dose: 40 mg Propranolol HCl (Inderal La) 120 mg PO DAILY [facility] Last Admin: 12/06/16 07:41 Dose: 120 mg Simvastatin (Zocor) 40 mg PO BEDTIME [facility] *Q Meaningful Use (DIS) - VTE *Q VTE Criteria *Q: - Stroke *Q Stroke Criteria *Q: - AMI *Q AMI Criteria *Q:
[2016-12-06] MEDS ORDERED: Simvastatin 40 MG Tab PO SCH (20:00)
== END 2016-12-06 10:25 | disposition home health service (06) | DRG 444 ==
LOC: VM.MS 12:32
PROVIDERS: ADMIT Family Medicine; ATTEND Family Medicine
DX: K81.9 Cholecystitis, unspecified (principal); G93.40 Encephalopathy, unspecified; K92.2 Gastrointestinal hemorrhage, unspecified; N18.4 Chronic kidney disease, stage 4 (severe); E11.65 Type 2 diabetes mellitus with hyperglycemia; I12.9 Hypertensive chronic kidney disease with stage 1 through stage 4 chronic kidney disease, or unspecified chronic kidney disease; Z97.8 Presence of other specified devices; Z79.4 Long term (current) use of insulin; E78.5 Hyperlipidemia, unspecified; M19.90 Unspecified osteoarthritis, unspecified site; Z86.14 Personal history of Methicillin resistant Staphylococcus aureus infection; Z87.891 Personal history of nicotine dependence; R13.10 Dysphagia, unspecified
CPT/HCPCS: 36415; 80048; 82962; 92610-GN; 94760; 97110-GP; 97161-GP; 97168-GO; 97530-GP; A9270-GY; J1815-GY

== ENCOUNTER 2019-02-19 12:29 | Observation (INO) | payer MEDICARE, OTHER ==
[2019-02-19] MEDS ORDERED: Sodium Chloride 0.9% 1,000 ML IV ONE (12:55)
[2019-02-19 13:51] LABS: CHLORIDE,CL 108 mmol/L (98-107); SODIUM,NA 144 mmol/L (136-145)
[2019-02-19 13:52] LABS: ANION GAP 16.4 mmol/L (10-20)
--- NOTE | 2019-02-19 14:21 | CT ---
[id number] CT/CT Head WO IV EXAM: CT Head WO IV CLINICAL DATA: TRAUMA COMPARISON: CORRELATION IS MADE WITH THE EXAM OF NOVEMBER 25, 2016. FINDINGS: There is no mass or mass effect. There is no hemorrhage or hydrocephalus. There are no extra-axial fluid collections. There are no sites of abnormal attenuation. IMPRESSION: NO PLAIN CT EVIDENCE OF ACUTE INTRACRANIAL PROCESS. Jaden Rosaels MD 02/19/19 7503 Thank you for allowing us to participate in the care of your patient.
--- NOTE | 2019-02-19 14:24 | CR ---
[id number] RAD/RAD Chest PA And Lateral EXAM: RAD Chest PA And Lateral CLINICAL DATA: SYNCOPE. BRADYCARDIA COMPARISON: CORRELATION IS MADE WITH THE EXAM OF OCTOBER 26, 2016. FINDINGS: The lungs are clear. The cardiomediastinal contour is prominent but stable. The regional bones and soft tissues are unremarkable. IMPRESSION: NO ACUTE PROCESS. Jaden Rosales MD 02/19/19 1423 Thank you for allowing us to participate in the care of your patient.
[2019-02-19] MEDS ORDERED: Calcium Carbonate 750 MG Tab.Chew PO PRN (16:15)
[2019-02-19] MEDS: Sodium Chloride 0.9% 1,000 ML IV SCH (16:22)
--- NOTE | 2019-02-19 17:07 | EDM.PDOC ---
ED HPI GENERAL MEDICAL PROBLEM - General Chief Complaint: General Stated Complaint: low blood sugar Time Seen by Provider: 02/19/19 12:50 Source of Information: Reports: Patient History Limitations: Reports: No Limitations - History of Present Illness INITIAL COMMENTS - FREE TEXT/NARRATIVE: Pt. presents to ER after a fall at home. He was found on the floor by his daughter. Pt. is not sure when the fall happened. He states that he has not recently been ill. EMS was summoned to the scene. His blood glucose read "low" and patient was given an amp of D50. He was minimally responsive prior to getting the D50 and was more alert afterward. Family states that the patient is not always compliant regarding his medications. He has a history of CKD. Again, pt. does not recall when the fall happened. He did strike his head, unknown loss of consciousness. He does have neck pain which is a new symptoms for him. Denies any chest pain, shortness of breath, lightheadedness, nausea, abdominal pain, or diarrhea. Onset Date: 02/19/19 Location: Reports: Head, Neck, Generalized Quality: Reports: Ache Generalized Pain Score (Numeric/FACES): 5 - Related Data Allergies Allergy/AdvReac Type Severity Reaction Status Date / Time Penicillins AdvReac Stomach Verified 02/19/19 12:36 Ache Home Meds: Home Meds Cyanocobalamin (Vitamin B-12) [B-12] 1,000 mcg PO DAILY 10/14/16 [History] Magnesium Oxide 400 mg PO BIDMEALS 10/24/16 [History] Aspirin [Adult Low Dose Aspirin EC] 81 mg PO DAILY 11/30/16 [History] Pantoprazole [ProTONIX] 40 mg PO DAILY 11/30/16 [History] Propranolol [Inderal LA] 160 mg PO DAILY 11/30/16 [History] Simvastatin [Zocor] 40 mg PO BEDTIME tablet 12/06/16 [Rx] Calcium Carbonate [Tums] 500 mg PO ASDIRECTED PRN 02/19/19 [History] Dulaglutide [Trulicity] 1.5 mg SQ ASDIRECTED 02/19/19 [History] Insulin Glarg,Human.Rec.Analog [LantUS Solostar] 40 units SUBCUT DAILY 02/19/19 [History] Past Medical History HEENT History: Reports: Cataract, Hard of Hearing, Impaired Vision, Other (See Below) Other HEENT History: presbyopia, myopia, pinguecula, pseudophakia Cardiovascular History: Reports: High Cholesterol, Hypertension Respiratory History: Reports: Intubation, Previous Gastrointestinal History: Reports: GI Bleed, Other (See Below) Other Gastrointestinal History: reflux esophagitis Genitourinary History: Reports: Chronic Renal Insuffiency, Urinary Incontinence , UTI, Recurrent Other Genitourinary History: handy dc'd this am Musculoskeletal History: Reports: Other (See Below) Other Musculoskeletal History: DJD Neurological History: Reports: None Psychiatric History: Reports: None Endocrine/Metabolic History: Reports: Diabetes, Type II, Hyperparathyroidism, Vitamin D Deficiency Hematologic History: Reports: B12 Deficiency, Other (See Below) Other Hematologic History: hyperkalemia. vitamin D deficiency Immunologic History: Reports: None Oncologic (Cancer) History: Reports: Basal Cell Carcinoma Dermatologic History: Reports: Other (See Below) Other Dermatologic History: itchthyosis congenita - Infectious Disease History Infectious Disease History: Reports: MRSA, Other (See Below) Other Infectious Disease History: hx - Past Surgical History Head Surgeries/Procedures: Reports: None Neurological Surgical History: Reports: None Musculoskeletal Surgical History: Reports: None Social & Family History - Family History Family Medical History: Noncontributory - Tobacco Use Smoking Status *Q: Former Smoker Used Tobacco, but Quit: Yes Month/Year Tobacco Last Used: . - Caffeine Use Caffeine Use: Reports: None - Recreational Drug Use Recreational Drug Use: No ED ROS GENERAL - Review of Systems Review Of Systems: See Below Constitutional: Reports: No Symptoms HEENT: Reports: Other (head pain) Respiratory: Reports: No Symptoms Cardiovascular: Reports: No Symptoms Endocrine: Reports: No Symptoms GI/Abdominal: Reports: No Symptoms : Reports: No Symptoms Musculoskeletal: Reports: Neck Pain Skin: Reports: No Symptoms Neurological: Reports: No Symptoms Psychiatric: Reports: No Symptoms Hematologic/Lymphatic: Reports: No Symptoms Immunologic: Reports: No Symptoms ED EXAM, GENERAL - Physical Exam Exam: See Below Exam Limited By: No Limitations General Appearance: Alert, WD/WN, Lethargic Eye Exam: Bilateral Eye: EOMI, Normal Fundi, Normal Inspection, PERRL Nose: Normal Inspection, Normal Mucosa, No Blood Throat/Mouth: Normal Inspection, Normal Lips, Normal Teeth, Normal Gums, Normal Oropharynx, Normal Voice, No Airway Compromise Head: Atraumatic, Normocephalic Neck: Normal Inspection, Supple, Non-Tender, Full Range of Motion Respiratory/Chest: No Respiratory Distress, Lungs Clear, Normal Breath Sounds, No Accessory Muscle Use, Chest Non-Tender Cardiovascular: Normal Peripheral Pulses, Regular Rate, Rhythm, No Edema, No Gallop, No JVD, No Murmur, No Rub GI/Abdominal: Normal Bowel Sounds, Soft, Non-Tender, No Organomegaly, No Distention, No Abnormal Bruit, No Mass (Male) Exam: Deferred Rectal (Males) Exam: Deferred Back Exam: Normal Inspection, Full Range of Motion Extremities: Normal Inspection, Normal Range of Motion, Non-Tender, No Pedal Edema, Normal Capillary Refill Neurological: Alert, Oriented, CN II-XII Intact, Normal Cognition, Normal Gait, Normal Reflexes, No Motor/Sensory Deficits Psychiatric: Normal Affect, Normal Mood Skin Exam: Warm, Dry, Intact, Normal Color, No Rash Lymphatic: No Adenopathy Course - Vital Signs Last Recorded V/S: Last Vital Signs Temp 36.1 C 02/19/19 15:09 Pulse 78 02/19/19 15:09 Resp 18 02/19/19 12:36 BP 139/67 02/19/19 15:09 Pulse Ox 95 02/19/19 15:09 - Orders/Labs/Meds Orders: Active Orders 24 hr Category Date Time Status UA W/MICROSCOPIC [URIN] Stat Lab 02/19/19 12:54 Ordered Medication Orders Aspirin (Halfprin) 81 mg PO DAILY [facility] Calcium Carbonate/Glycine (Tums Extra Strength) 750 mg PO ASDIRECTED PRN PRN Reason: Heartburn Cyanocobalamin (Vitamin B12) 1,000 mcg PO DAILY [facility] Sodium Chloride (Normal Saline) 1,000 mls @ 100 mls/hr IV ASDIRECTED [facility] Last Admin: 02/19/19 16:22 Dose: 100 mls/hr Insulin Glargine (Lantus Solostar) 40 units SUBCUT DAILY [facility] Magnesium Oxide (Magnesium Oxide) 400 mg PO BIDMEALS [facility] Non-Formulary Medication (Dulaglutide [Trulicity]) 1.5 mg SQ ASDIRECTED [facility] Non-Formulary Medication (Propranolol [Inderal La]) 160 mg PO DAILY [facility] Pantoprazole Sodium (Protonix) 40 mg PO ACBREAKFAST JIGAR Simvastatin (Zocor) 40 mg PO BEDTIME JIGAR Labs: Laboratory Tests 02/19/19 02/19/19 02/19/19 Range/Units 13:05 13:05 13:05 WBC 15.4 H (4.0-10.0) x10^3/uL RBC 4.52 (4.5-6.0) x10^6/uL Hgb 14.5 D (14.0-18.0) g/dL Hct 42.9 (40.0-52.0) % MCV 94.9 H D (78.0-93.0) fL MCH 32.1 H (26.0-32.0) pg MCHC 33.8 (32.0-36.0) g/dL RDW Coeff of Huber 12.7 (10.0-15.0) % Plt Count 212 (130-400) x10^3/uL Neut % (Auto) 82.2 H (50.0-80.0) % Lymph % (Auto) 9.8 L (25.0-50.0) % [place] % (Auto) 7.8 (2.0-11.0) % Eos % (Auto) 0.1 (0.0-4.0) % Baso % (Auto) 0.1 L (0.2-1.2) % PT 11.0 (10.0-12.8) SEC INR 1.0 L (2.0-3.5) Sodium 144 (136-145) mmol/L Potassium 4.4 (3.5-5.1) mmol/L Chloride 108 H (98-107) mmol/L Carbon Dioxide 24 (21-32) mmol/L Anion Gap 16.4 (10-20) mmol/L BUN 32 H (7-18) mg/dL Creatinine 2.3 H (0.70-1.30) mg/dL Est Cr Clr Drug Dosing TNP Estimated GFR (MDRD) 28 Glucose 147 H (74-106) mg/dL Lactic Acid (0.4-2.0) mmol/L Calcium 8.1 L (8.5-10.1) mg/dL Corrected Calcium 8.82 (8.5-10.1) mg/dL Phosphorus 4.6 (2.6-4.7) mg/dL Magnesium 2.1 (1.8-2.4) mg/dL Total Bilirubin 0.7 (0.2-1.0) mg/dL AST 26 (15-37) U/L ALT 23 (16-63) U/L Alkaline Phosphatase 138 H (46-116) U/L Creatine Kinase (39-308) U/L Troponin I 0.019 (<=0.056) ng/mL C-Reactive Protein 4.4 H (<=0.9) mg/dL Total Protein 6.9 (6.4-8.2) g/dL Albumin 3.1 L (3.4-5.0) g/dL Globulin 3.8 Albumin/Globulin Ratio 0.82 TSH, Ultra Sensitive 1.940 (0.358-3.74) uIU/mL Ethyl Alcohol < 3 (0-3) mg/dL 02/19/19 02/19/19 Range/Units 13:05 13:05 WBC (4.0-10.0) x10^3/uL RBC (4.5-6.0) x10^6/uL Hgb (14.0-18.0) g/dL Hct (40.0-52.0) % MCV (78.0-93.0) fL MCH (26.0-32.0) pg MCHC (32.0-36.0) g/dL RDW Coeff of Huber (10.0-15.0) % Plt Count (130-400) x10^3/uL Neut % (Auto) (50.0-80.0) % Lymph % (Auto) (25.0-50.0) % [place] % (Auto) (2.0-11.0) % Eos % (Auto) (0.0-4.0) % Baso % (Auto) (0.2-1.2) % PT (10.0-12.8) SEC INR (2.0-3.5) Sodium (136-145) mmol/L Potassium (3.5-5.1) mmol/L Chloride (98-107) mmol/L Carbon Dioxide (21-32) mmol/L Anion Gap (10-20) mmol/L BUN (7-18) mg/dL Creatinine (0.70-1.30) mg/dL Est Cr Clr Drug Dosing Estimated GFR (MDRD) Glucose (74-106) mg/dL Lactic Acid 1.4 (0.4-2.0) mmol/L Calcium (8.5-10.1) mg/dL Corrected Calcium (8.5-10.1) mg/dL Phosphorus (2.6-4.7) mg/dL Magnesium (1.8-2.4) mg/dL Total Bilirubin (0.2-1.0) mg/dL AST (15-37) U/L ALT (16-63) U/L Alkaline Phosphatase (46-116) U/L Creatine Kinase 169 (39-308) U/L Troponin I (<=0.056) ng/mL C-Reactive Protein (<=0.9) mg/dL Total Protein (6.4-8.2) g/dL Albumin (3.4-5.0) g/dL Globulin Albumin/Globulin Ratio TSH, Ultra Sensitive (0.358-3.74) uIU/mL Ethyl Alcohol (0-3) mg/dL Meds: Medications Generic Name Dose Route Start Last Admin Trade Name Freq PRN Reason Stop Dose Admin Aspirin 81 mg 02/20/19 08:00 Halfprin PO DAILY [facility] Calcium Carbonate/Glycine 750 mg 02/19/19 16:15 Tums Extra Strength PO ASDIRECTED PRN Heartburn Cyanocobalamin 1,000 mcg 02/20/19 08:00 Vitamin B12 PO DAILY [facility] Sodium Chloride 1,000 mls @ 100 mls/hr 02/19/19 15:45 02/19/19 16:22 Normal Saline IV 100 mls/hr ASDIRECTED JIGAR Administration Insulin Glargine 40 units 02/20/19 08:00 Lantus Solostar SUBCUT DAILY J[facility] Magnesium Oxide 400 mg 02/19/19 18:00 Magnesium Oxide PO BIDMEALS JIGAR Non-Formulary Medication 1.5 mg 02/19/19 15:45 Dulaglutide [Trulicity] SQ ASDIRECTED [facility] Non-Formulary Medication 160 mg 02/20/19 08:00 Propranolol [Inderal La] PO DAILY JIG[facility] Pantoprazole Sodium 40 mg 02/20/19 07:00 Protonix PO ACBREAKFAST JIGAR Simvastatin 40 mg 02/19/19 20:00 Zocor PO BEDTIME JIGAR Discontinued Medications Generic Name Dose Route Start Last Admin Trade Name Freq PRN Reason Stop Dose Admin Sodium Chloride 1,000 mls @ 1,000 mls/hr 02/19/19 12:55 02/19/19 13:07 Normal Saline IV 02/19/19 13:54 1,000 mls/hr .BOLUS ONE Administration Departure - Departure Time of Disposition: 14:00 Disposition: Refer to Observation Condition: Good Clinical Impression: Dehydration, Acute on chronic renal failure - Discharge Information - My Orders Last 24 Hours: My Active Orders 02/19/19 12:54 UA W/MICROSCOPIC [URIN] Stat - Assessment/Plan Last 24 Hours: My Active Orders 02/19/19 12:54 UA W/MICROSCOPIC [URIN] Stat Plan: Pt. will be admitted. Will continue IV NS at 100ml./hr. CPK is pending at the time of this documentation. He very likely has some underlying rhabdomyolysis. Pt. is a code 1. He was feeling much better after 1 liter of normal saline, but I would like to ensure the patient is stable for discharge home likely sometime tomorrow.
[2019-02-19] MEDS: Magnesium Oxide 400 MG Tab PO SCH (17:21)
[2019-02-19] MEDS ORDERED: 50% Dextrose in Water 50 ML Syringe IV PRN (17:21)
[2019-02-19] MEDS ORDERED: Simvastatin 40 MG Tab PO SCH (20:00)
[2019-02-20] MEDS: Sodium Chloride 0.9% 1,000 ML IV SCH (02:09)
[2019-02-20 05:31] VITALS: BP 128/55
[2019-02-20] MEDS ORDERED: Pantoprazole 40 MG Tab.CR PO SCH (07:00)
[2019-02-20] MEDS ORDERED: Aspirin 81 MG Tab.EC PO SCH (08:00)
[2019-02-20] MEDS ORDERED: Cyanocobalamin (Vitamin B12) 1,000 MCG Tab PO SCH (08:00)
[2019-02-20] MEDS ORDERED: Insulin Glargine,Human Rec. Analog 100 Units/ML 3 ML Pen SUBCUT SCH (08:00)
[2019-02-20 08:05] LABS: ANION GAP 13.4 mmol/L (10-20)
[2019-02-20] MEDS: Magnesium Oxide 400 MG Tab PO SCH (08:17)
[2019-02-20] MEDS ORDERED: DULAGLUTIDE 1.5 MG SQ SCH (09:00)
--- NOTE | 2019-02-20 09:52 | PCM.DCSUM1 ---
Discharge Summary - Hospital Course Brief History: Patient presented to ER after a fall at home. He was found on the floor by his daughter. Pt. is not sure when the fall happened. He states that he has not recently been ill. EMS was summoned to the scene. His blood glucose read "low" and patient was given an amp of D50. He was minimally responsive prior to getting the D50 and was more alert afterward. Again, pt. does not recall when the fall happened. He did strike his head, unknown loss of consciousness. He does have neck pain which is a new symptoms for him. He was sent for a CT scan and chest xray. Both had negative findings. Patient was given fluids in the ER for dehydration and was admitted over night for observation. Patient had an uneventful night with no complaints or concerns. Denies any chest pain, shortness of breath, lightheadedness, nausea, abdominal pain, or diarrhea. He has been up ambulating without difficulty, VSS, eating and drinking without difficulty. Family who is at the bedside and patient are requesting to go home. Diagnosis: Stroke: No Modified [place] Scale: No Symptoms at All Modified Kaylee Scale Score: 0 - Discharge Data Discharge Date: 02/20/19 Discharge Disposition: Home, Self-Care 01 Condition: Good - Discharge Diagnosis/Problem(s) (1) Failure to thrive SNOMED Code(s): 26622393 ICD Code: [id number] - Status: Acute Current Visit: Yes (2) Acute on chronic renal failure SNOMED Code(s): 579993154 ICD Code: N17.9 - ACUTE KIDNEY FAILURE, UNSPECIFIED; N18.9 - CHRONIC KIDNEY DISEASE, UNSPECIFIED Status: Acute Current Visit: Yes (3) Dehydration SNOMED Code(s): 13460501 ICD Code: E86.0 - DEHYDRATION Status: Acute Current Visit: Yes - Patient Instructions Diet: Usual Diet as Tolerated Activity: As Tolerated Driving: May Drive Today Showering/Bathing: May Shower Notify Provider of: Fever, Increased Pain, Nausea and/or Vomiting Other/Special Instructions: 1. rest. 2. increase your water intake. 3. eat foods that are easy to digest: yogurt, toast, oatmeal, bananas. 4. Activity and diet as tolerated. 5. Follow up in the clinic with your PCP on Friday or Friday. 6. Call with any questions or concerns - Discharge Plan *PRESCRIPTION DRUG MONITORING PROGRAM REVIEWED*: Not Applicable *COPY OF PRESCRIPTION DRUG MONITORING REPORT IN PATIENT DEVANTE: Not Applicable Home Medications: Home Meds Cyanocobalamin (Vitamin B-12) [B-12] 1,000 mcg PO DAILY 10/14/16 [History] Magnesium Oxide 400 mg PO BIDMEALS 10/24/16 [History] Aspirin [Adult Low Dose Aspirin EC] 81 mg PO DAILY 11/30/16 [History] Pantoprazole [ProTONIX] 40 mg PO DAILY 11/30/16 [History] Propranolol [Inderal LA] 160 mg PO DAILY 11/30/16 [History] Simvastatin [Zocor] 40 mg PO BEDTIME tablet 12/06/16 [Rx] Calcium Carbonate [Tums] 500 mg PO ASDIRECTED PRN 02/19/19 [History] Dulaglutide [Trulicity] 1.5 mg SQ ASDIRECTED 02/19/19 [History] Insulin Glarg,Human.Rec.Analog [LantUS Solostar] 40 units SUBCUT DAILY 02/19/19 [History] Oxygen Therapy Mode: Room Air Patient Handouts: Dehydration, Adult, [id number], Failure to Thrive, Adult, [id number] Forms: ED Department Discharge Referrals: Martín Sharma MD [Primary Care Provider] - - Discharge Summary/Plan Comment DC Time >30 min.: No - General Info Date of Service: 02/20/19 Functional Status: Reports: Pain Controlled, Tolerating Diet, Ambulating - Review of Systems General: Reports: No Symptoms HEENT: Reports: No Symptoms Pulmonary: Reports: No Symptoms Cardiovascular: Reports: No Symptoms Gastrointestinal: Reports: No Symptoms Genitourinary: Reports: No Symptoms Musculoskeletal: Reports: No Symptoms Skin: Reports: No Symptoms Neurological: Reports: No Symptoms Psychiatric: Reports: No Symptoms - Patient Data Vitals - Most Recent: Last Vital Signs Temp 36.6 C 02/20/19 05:30 Pulse 73 02/20/19 05:30 Resp 18 02/20/19 05:30 BP 128/55 L 02/20/19 05:30 Pulse Ox 96 02/20/19 05:30 Weight - Most Recent: 66.678 kg I&O - Last 24 hours: Intake & Output 02/19/19 02/20/1902/20/19 22:59 06:59 14:59 Intake Total 525 1415 Output Total 400 Balance 525 1015 Lab Results - Last 24 hrs: Laboratory Results - last 24 hr 02/19/19 02/19/19 02/19/19 Range/Units 13:05 13:05 13:05 WBC 15.4 H (4.0-10.0) x10^3/uL RBC 4.52 (4.5-6.0) x10^6/uL Hgb 14.5 D (14.0-18.0) g/dL Hct 42.9 (40.0-52.0) % MCV 94.9 H D (78.0-93.0) fL MCH 32.1 H (26.0-32.0) pg MCHC 33.8 (32.0-36.0) g/dL RDW Coeff of Huber 12.7 (10.0-15.0) % Plt Count 212 (130-400) x10^3/uL Neut % (Auto) 82.2 H (50.0-80.0) % Lymph % (Auto) 9.8 L (25.0-50.0) % [place] % (Auto) 7.8 (2.0-11.0) % Eos % (Auto) 0.1 (0.0-4.0) % Baso % (Auto) 0.1 L (0.2-1.2) % PT 11.0 (10.0-12.8) SEC INR 1.0 L (2.0-3.5) Sodium 144 (136-145) mmol/L Potassium 4.4 (3.5-5.1) mmol/L Chloride 108 H (98-107) mmol/L Carbon Dioxide 24 (21-32) mmol/L Anion Gap 16.4 (10-20) mmol/L BUN 32 H (7-18) mg/dL Creatinine 2.3 H (0.70-1.30) mg/dL Est Cr Clr Drug Dosing TNP Estimated GFR (MDRD) 28 Glucose 147 H (74-106) mg/dL POC Glucose (74-106) mg/dL Lactic Acid (0.4-2.0) mmol/L Calcium 8.1 L (8.5-10.1) mg/dL Corrected Calcium 8.82 (8.5-10.1) mg/dL Phosphorus 4.6 (2.6-4.7) mg/dL Magnesium 2.1 (1.8-2.4) mg/dL Total Bilirubin 0.7 (0.2-1.0) mg/dL AST 26 (15-37) U/L ALT 23 (16-63) U/L Alkaline Phosphatase 138 H (46-116) U/L Creatine Kinase (39-308) U/L Troponin I 0.019 (<=0.056) ng/mL C-Reactive Protein 4.4 H (<=0.9) mg/dL Total Protein 6.9 (6.4-8.2) g/dL Albumin 3.1 L (3.4-5.0) g/dL Globulin 3.8 Albumin/Globulin Ratio 0.82 TSH, Ultra Sensitive 1.940 (0.358-3.74) uIU/mL Urine Color (YELLOW) Urine Appearance (CLEAR) Urine pH (5.0-8.0) Ur Specific Page Urine Protein (NEGATIVE) mg/dL Urine Glucose (UA) (NEGATIVE) mg/dL Urine Ketones (NEGATIVE) mg/dL Urine Occult Blood (NEGATIVE) Urine Nitrite (NEGATIVE) Urine Bilirubin (NEGATIVE) Urine Urobilinogen (0.2) EU/dL Ur Leukocyte Esterase (NEGATIVE) Urine RBC (NOT SEEN) /HPF Urine WBC (NOT SEEN) /HPF Ur Squamous Epith Cells (NEGATIVE) /HPF Urine Bacteria (NEGATIVE) /HPF Urine Mucus (NEGATIVE) /LPF Ethyl Alcohol < 3 (0-3) mg/dL 02/19/19 02/19/19 02/19/19 Range/Units 13:05 13:05 17:19 WBC (4.0-10.0) x10^3/uL RBC (4.5-6.0) x10^6/uL Hgb (14.0-18.0) g/dL Hct (40.0-52.0) % MCV (78.0-93.0) fL MCH (26.0-32.0) pg MCHC (32.0-36.0) g/dL RDW Coeff of Hubre (10.0-15.0) % Plt Count (130-400) x10^3/uL Neut % (Auto) (50.0-80.0) % Lymph % (Auto) (25.0-50.0) % [place] % (Auto) (2.0-11.0) % Eos % (Auto) (0.0-4.0) % Baso % (Auto) (0.2-1.2) % PT (10.0-12.8) SEC INR (2.0-3.5) Sodium (136-145) mmol/L Potassium (3.5-5.1) mmol/L Chloride (98-107) mmol/L Carbon Dioxide (21-32) mmol/L Anion Gap (10-20) mmol/L BUN (7-18) mg/dL Creatinine (0.70-1.30) mg/dL Est Cr Clr Drug Dosing Estimated GFR (MDRD) Glucose (74-106) mg/dL POC Glucose 37 L* (74-106) mg/dL Lactic Acid 1.4 (0.4-2.0) mmol/L Calcium (8.5-10.1) mg/dL Corrected Calcium (8.5-10.1) mg/dL Phosphorus (2.6-4.7) mg/dL Magnesium (1.8-2.4) mg/dL Total Bilirubin (0.2-1.0) mg/dL AST (15-37) U/L ALT (16-63) U/L Alkaline Phosphatase (46-116) U/L Creatine Kinase 169 (39-308) U/L Troponin I (<=0.056) ng/mL C-Reactive Protein (<=0.9) mg/dL Total Protein (6.4-8.2) g/dL Albumin (3.4-5.0) g/dL Globulin Albumin/Globulin Ratio TSH, Ultra Sensitive (0.358-3.74) uIU/mL Urine Color (YELLOW) Urine Appearance (CLEAR) Urine pH (5.0-8.0) Ur Specific Page Urine Protein (NEGATIVE) mg/dL Urine Glucose (UA) (NEGATIVE) mg/dL Urine Ketones (NEGATIVE) mg/dL Urine Occult Blood (NEGATIVE) Urine Nitrite (NEGATIVE) Urine Bilirubin (NEGATIVE) Urine Urobilinogen (0.2) EU/dL Ur Leukocyte Esterase (NEGATIVE) Urine RBC (NOT SEEN) /HPF Urine WBC (NOT SEEN) /HPF Ur Squamous Epith Cells (NEGATIVE) /HPF Urine Bacteria (NEGATIVE) /HPF Urine Mucus (NEGATIVE) /LPF Ethyl Alcohol (0-3) mg/dL 02/19/19 02/19/19 02/19/19 Range/Units 17:42 18:09 19:48 WBC (4.0-10.0) x10^3/uL RBC (4.5-6.0) x10^6/uL Hgb (14.0-18.0) g/dL Hct (40.0-52.0) % MCV (78.0-93.0) fL MCH (26.0-32.0) pg MCHC (32.0-36.0) g/dL RDW Coeff of Huber (10.0-15.0) % Plt Count (130-400) x10^3/uL Neut % (Auto) (50.0-80.0) % Lymph % (Auto) (25.0-50.0) % [place] % (Auto) (2.0-11.0) % Eos % (Auto) (0.0-4.0) % Baso % (Auto) (0.2-1.2) % PT (10.0-12.8) SEC INR (2.0-3.5) Sodium (136-145) mmol/L Potassium (3.5-5.1) mmol/L Chloride (98-107) mmol/L Carbon Dioxide (21-32) mmol/L Anion Gap (10-20) mmol/L BUN (7-18) mg/dL Creatinine (0.70-1.30) mg/dL Est Cr Clr Drug Dosing Estimated GFR (MDRD) Glucose (74-106) mg/dL POC Glucose 49 L 99 216 H (74-106) mg/dL Lactic Acid (0.4-2.0) mmol/L Calcium (8.5-10.1) mg/dL Corrected Calcium (8.5-10.1) mg/dL Phosphorus (2.6-4.7) mg/dL Magnesium (1.8-2.4) mg/dL Total Bilirubin (0.2-1.0) mg/dL AST (15-37) U/L ALT (16-63) U/L Alkaline Phosphatase (46-116) U/L Creatine Kinase (39-308) U/L Troponin I (<=0.056) ng/mL C-Reactive Protein (<=0.9) mg/dL Total Protein (6.4-8.2) g/dL Albumin (3.4-5.0) g/dL Globulin Albumin/Globulin Ratio TSH, Ultra Sensitive (0.358-3.74) uIU/mL Urine Color (YELLOW) Urine Appearance (CLEAR) Urine pH (5.0-8.0) Ur Specific Page Urine Protein (NEGATIVE) mg/dL Urine Glucose (UA) (NEGATIVE) mg/dL Urine Ketones (NEGATIVE) mg/dL Urine Occult Blood (NEGATIVE) Urine Nitrite (NEGATIVE) Urine Bilirubin (NEGATIVE) Urine Urobilinogen (0.2) EU/dL Ur Leukocyte Esterase (NEGATIVE) Urine RBC (NOT SEEN) /HPF Urine WBC (NOT SEEN) /HPF Ur Squamous Epith Cells (NEGATIVE) /HPF Urine Bacteria (NEGATIVE) /HPF Urine Mucus (NEGATIVE) /LPF Ethyl Alcohol (0-3) mg/dL 02/19/19 02/20/19 02/20/19 Range/Units 22:56 05:26 05:33 WBC (4.0-10.0) x10^3/uL RBC (4.5-6.0) x10^6/uL Hgb (14.0-18.0) g/dL Hct (40.0-52.0) % MCV (78.0-93.0) fL MCH (26.0-32.0) pg MCHC (32.0-36.0) g/dL RDW Coeff of Huber (10.0-15.0) % Plt Count (130-400) x10^3/uL Neut % (Auto) (50.0-80.0) % Lymph % (Auto) (25.0-50.0) % [place] % (Auto) (2.0-11.0) % Eos % (Auto) (0.0-4.0) % Baso % (Auto) (0.2-1.2) % PT (10.0-12.8) SEC INR (2.0-3.5) Sodium (136-145) mmol/L Potassium (3.5-5.1) mmol/L Chloride (98-107) mmol/L Carbon Dioxide (21-32) mmol/L Anion Gap (10-20) mmol/L BUN (7-18) mg/dL Creatinine (0.70-1.30) mg/dL Est Cr Clr Drug Dosing Estimated GFR (MDRD) Glucose (74-106) mg/dL POC Glucose 223 H 117 H (74-106) mg/dL Lactic Acid (0.4-2.0) mmol/L Calcium (8.5-10.1) mg/dL Corrected Calcium (8.5-10.1) mg/dL Phosphorus (2.6-4.7) mg/dL Magnesium (1.8-2.4) mg/dL Total Bilirubin (0.2-1.0) mg/dL AST (15-37) U/L ALT (16-63) U/L Alkaline Phosphatase (46-116) U/L Creatine Kinase (39-308) U/L Troponin I (<=0.056) ng/mL C-Reactive Protein (<=0.9) mg/dL Total Protein (6.4-8.2) g/dL Albumin (3.4-5.0) g/dL Globulin Albumin/Globulin Ratio TSH, Ultra Sensitive (0.358-3.74) uIU/mL Urine Color Yellow (YELLOW) Urine Appearance Clear (CLEAR) Urine pH 6.0 (5.0-8.0) Ur Specific Page 1.015 Urine Protein Negative (NEGATIVE) mg/dL Urine Glucose (UA) 250 H (NEGATIVE) mg/dL Urine Ketones Negative (NEGATIVE) mg/dL Urine Occult Blood Negative (NEGATIVE) Urine Nitrite Negative (NEGATIVE) Urine Bilirubin Negative (NEGATIVE) Urine Urobilinogen 0.2 (0.2) EU/dL Ur Leukocyte Esterase Trace H (NEGATIVE) Urine RBC Not seen (NOT SEEN) /HPF Urine WBC 0-5 (NOT SEEN) /HPF Ur Squamous Epith Cells Rare (NEGATIVE) /HPF Urine Bacteria Not seen (NEGATIVE) /HPF Urine Mucus Not seen (NEGATIVE) /LPF Ethyl Alcohol (0-3) mg/dL 02/20/19 02/20/19 02/20/19 Range/Units 07:29 07:29 07:29 WBC 10.4 H (4.0-10.0) x10^3/uL RBC 3.74 L (4.5-6.0) x10^6/uL Hgb 12.0 L D (14.0-18.0) g/dL Hct 36.2 L (40.0-52.0) % MCV 96.8 H (78.0-93.0) fL MCH 32.1 H (26.0-32.0) pg MCHC 33.1 (32.0-36.0) g/dL RDW Coeff of Huber 12.8 (10.0-15.0) % Plt Count 182 (130-400) x10^3/uL Neut % (Auto) 67.7 (50.0-80.0) % Lymph % (Auto) 18.6 L (25.0-50.0) % [place] % (Auto) 13.1 H (2.0-11.0) % Eos % (Auto) 0.4 (0.0-4.0) % Baso % (Auto) 0.2 (0.2-1.2) % PT 11.5 (10.0-12.8) SEC INR 1.0 L (2.0-3.5) Sodium 141 (136-145) mmol/L Potassium 4.4 (3.5-5.1) mmol/L Chloride 109 H (98-107) mmol/L Carbon Dioxide 23 (21-32) mmol/L Anion Gap 13.4 (10-20) mmol/L BUN 29 H (7-18) mg/dL Creatinine 2.0 H (0.70-1.30) mg/dL Est Cr Clr Drug Dosing 27.47 Estimated GFR (MDRD) 32 Glucose 116 H (74-106) mg/dL POC Glucose (74-106) mg/dL Lactic Acid (0.4-2.0) mmol/L Calcium 7.4 L (8.5-10.1) mg/dL Corrected Calcium 8.52 (8.5-10.1) mg/dL Phosphorus (2.6-4.7) mg/dL Magnesium (1.8-2.4) mg/dL Total Bilirubin 0.5 (0.2-1.0) mg/dL AST 27 (15-37) U/L ALT 19 (16-63) U/L Alkaline Phosphatase 115 (46-116) U/L Creatine Kinase (39-308) U/L Troponin I (<=0.056) ng/mL C-Reactive Protein (<=0.9) mg/dL Total Protein 5.7 L (6.4-8.2) g/dL Albumin 2.6 L (3.4-5.0) g/dL Globulin 3.1 Albumin/Globulin Ratio 0.84 TSH, Ultra Sensitive (0.358-3.74) uIU/mL Urine Color (YELLOW) Urine Appearance (CLEAR) Urine pH (5.0-8.0) Ur Specific Page Urine Protein (NEGATIVE) mg/dL Urine Glucose (UA) (NEGATIVE) mg/dL Urine Ketones (NEGATIVE) mg/dL Urine Occult Blood (NEGATIVE) Urine Nitrite (NEGATIVE) Urine Bilirubin (NEGATIVE) Urine Urobilinogen (0.2) EU/dL Ur Leukocyte Esterase (NEGATIVE) Urine RBC (NOT SEEN) /HPF Urine WBC (NOT SEEN) /HPF Ur Squamous Epith Cells (NEGATIVE) /HPF Urine Bacteria (NEGATIVE) /HPF Urine Mucus (NEGATIVE) /LPF Ethyl Alcohol (0-3) mg/dL Med Orders - Current: Current Medications Aspirin (Halfprin) 81 mg PO DAILY [facility] [place] Last Admin: 02/20/19 08:17 Dose: 81 mg Calcium Carbonate/Glycine (Tums Extra Strength) 750 mg PO ASDIRECTED PRN PRN Reason: Heartburn Cyanocobalamin (Vitamin B12) 1,000 mcg PO DAILY [facility] [place] Last Admin: 02/20/19 08:17 Dose: 1,000 mcg Dextrose/Water (Dextrose 50% In Water) 50 ml IV ASDIRECTED PRN PRN Reason: Hypoglycemia Sodium Chloride (Normal Saline) 1,000 mls @ 100 mls/hr IV ASDIRECTED [facility] [place] Last Admin: 02/20/19 02:09 Dose: 100 mls/hr Insulin Glargine (Lantus Solostar) 40 units SUBCUT DAILY [facility] [place] Last Admin: 02/20/19 08:18 Dose: 40 unit Magnesium Oxide (Magnesium Oxide) 400 mg PO BIDMEALS [facility] [place] Last Admin: 02/20/19 08:17 Dose: 400 mg Dulaglutide [ Trulicity] 1.5 Mg Own Med 1.5 mg SQ ASDIRECTED [facility] [place] Propranolol Er 160 (Mg Own Med) 160 mg PO DAILY [facility] [place] Last Admin: 02/20/19 08:18 Dose: 160 mg Pantoprazole Sodium (Protonix) 40 mg PO ACBREAKFAST [facility] [place] Last Admin: 02/20/19 06:10 Dose: 40 mg Simvastatin (Zocor) 40 mg PO BEDTIME [facility] [place] Last Admin: 02/19/19 19:49 Dose: 40 mg Discontinued Medications Sodium Chloride (Normal Saline) 1,000 mls @ 1,000 mls/hr IV .BOLUS ONE Stop: 02/19/19 13:54 Last Admin: 02/19/19 13:07 Dose: 1,000 mls/hr - Exam General: Reports: Alert, Oriented HEENT: Reports: Pupils Equal, Pupils Reactive, EOMI, Mucous Membr. Moist/[place] Neck: Reports: Supple Lungs: Reports: Clear to Auscultation, Normal Respiratory Effort Cardiovascular: Reports: Regular Rate, Regular Rhythm GI/Abdominal Exam: Normal Bowel Sounds, Soft, Non-Tender, No Distention, No Abnormal Bruit Back Exam: Reports: Normal Inspection, Full Range of Motion Extremities: Normal Inspection, Normal Range of Motion, Non-Tender, No Pedal Edema Skin: Reports: Warm, Dry, Intact Neurological: Reports: No New Focal Deficit Psy/Mental Status: Reports: Alert, Normal Affect, Normal Mood
== END 2019-02-20 11:00 | disposition home or self-care (01) ==
LOC: VM.ED 12:29 → VM.MS 14:27 → VM.ED 14:40
PROVIDERS: ADMIT Physician Assistant; ATTEND Physician Assistant
DX: E86.0 Dehydration (principal); R62.7 Adult failure to thrive; E21.3 Hyperparathyroidism, unspecified; I12.9 Hypertensive chronic kidney disease with stage 1 through stage 4 chronic kidney disease, or unspecified chronic kidney disease; E11.22 Type 2 diabetes mellitus with diabetic chronic kidney disease; N18.9 Chronic kidney disease, unspecified; N17.9 Acute kidney failure, unspecified; E78.00 Pure hypercholesterolemia, unspecified; E53.8 Deficiency of other specified B group vitamins; E55.9 Vitamin D deficiency, unspecified; Z87.891 Personal history of nicotine dependence; Z79.82 Long term (current) use of aspirin; Z79.899 Other long term (current) drug therapy; Z88.0 Allergy status to penicillin
CPT/HCPCS: 36415; 70450; 71046; 80053; 81001; 82550; 82962; 83605; 83735; 84100; 84443; 84484; 85025; 85610; 86140; 93005; 96360; 96361; 99217; 99220; 99285-25; A9270-GY; G0378; G0480; J7030

== ENCOUNTER 2023-02-10 13:00 | Inpatient (IN) | payer MEDICARE, OTHER ==
[2023-02-10] MEDS ORDERED: Menthol/Zinc Oxide Ointment 3.5 GM Tube TOP PRN (16:44)
[2023-02-10] MEDS ORDERED: Acetaminophen 650 MG Supp RECTAL PRN (16:44)
[2023-02-10] MEDS ORDERED: LORazepam 2 MG/ML SDV IV PRN (16:44)
[2023-02-10] MEDS ORDERED: Flumazenil 0.1 MG/ML 5 ML MDV IVPUSH PRN (16:44)
[2023-02-10] MEDS ORDERED: Atropine 1% Ophth Soln 5 ML Bottle SL PRN (16:44)
[2023-02-10] MEDS ORDERED: Ondansetron 4 MG/2 ML SDV IVPUSH PRN (16:44)
[2023-02-10] MEDS ORDERED: Lidocaine 2% Viscous Solution 15 ML UD PO PRN (16:44)
[2023-02-10] MEDS: HYDROmorphone 0.5 MG/0.5 ML Syringe IVPUSH PRN (19:46)
[2023-02-10] MEDS: HYDROmorphone 1 MG/ML Syringe IVPUSH SCH (22:15)
== END 2023-02-10 20:14 | disposition expired | DRG 951 ==
LOC: VM.MS 13:00
PROVIDERS: ADMIT Internal Medicine; ATTEND Internal Medicine
DX: Z51.5 Encounter for palliative care (principal); J96.01 Acute respiratory failure with hypoxia; J69.0 Pneumonitis due to inhalation of food and vomit; G93.41 Metabolic encephalopathy; N17.9 Acute kidney failure, unspecified; N18.4 Chronic kidney disease, stage 4 (severe); E87.20 Acidosis, unspecified; E86.0 Dehydration; Z66 Do not resuscitate; I12.9 Hypertensive chronic kidney disease with stage 1 through stage 4 chronic kidney disease, or unspecified chronic kidney disease; E11.649 Type 2 diabetes mellitus with hypoglycemia without coma; E11.65 Type 2 diabetes mellitus with hyperglycemia; M15.9 Polyosteoarthritis, unspecified; E78.5 Hyperlipidemia, unspecified; H91.90 Unspecified hearing loss, unspecified ear; E11.22 Type 2 diabetes mellitus with diabetic chronic kidney disease; Z88.0 Allergy status to penicillin; Z79.4 Long term (current) use of insulin; Z87.440 Personal history of urinary (tract) infections; Z79.82 Long term (current) use of aspirin; Z79.899 Other long term (current) drug therapy
CPT/HCPCS: J1170